=== PATIENT | female | born 1940 | race Caucasian/White ===

== ENCOUNTER 2017-06-13 22:10 | Inpatient (IN) | payer OTHER ==
[2017-06-13 22:17] VITALS: BMI 26.4
--- NOTE | 2017-06-13 22:19 | PDOC ---
Attending Attestation - Resident Resident Name: Carlos Fagan - ED Attending Attestation I have performed the following: I have examined & evaluated the patient, The case was reviewed & discussed with the resident, I agree w/resident's findings & plan, Exceptions are as noted - HPI HPI: 06/13/17 22:23 77y F hx of COPD, dm, htn, hl, gerd, presents with worsening cough/chest tightness for the past week. +increased sputum production that is whitish in color, without associated fever/chills, n/v, leg swelling, palpitations, Allergies: Penicillins, eggs Social History: Former smoker. Denies alcohol or drug use. PCP: Dr. Radha Raymundo Filterer: Dr. Stephenson - Physicial Exam PE: 06/13/17 22:33 GENERAL: The patient is awake, alert, and fully oriented, Nontoxic - + respiratory distress HEAD: Normocephalic, atraumatic. EYES: extraocular movements intact, sclera anicteric, conjunctiva clear. ENT: Normal voice, Moist mucous membranes. NECK: Normal range of motion, supple LUNGS: +poor air movement, +diffuse wheezing b/l, speaking in short segments HEART: tachcyardic ABDOMEN: Soft, nontender, normoactive bowel sounds. No guarding, no rebound. No CVA tenderness EXTREMITIES: Normal range of motion, no edema. NEUROLOGICAL: No facial assymetry, Normal speech, moving all 4 extremities spontaneously and symemtrically PSYCH: Normal mood, normal affect. SKIN: Warm, Dry, normal turgor, - Medical Decision Making 06/13/17 22:37 On presentation the patient was dyspneic, speaking in short segments, hypoxic, slightly tachycardic. I was immediately bedside evaluating the patient. suspect codp exacerbation will r/o pna, influenza will ck labs, ekg pt given solumedrol, nebs, mag anticipate admission for further management 06/13/17 23:27 pts labs reviewed cxr neg for infiltrates, +mild hyperexpansion pt given levaquin for copd exacerbation pt clinically significantly improved will observe for COPD exacerbation CRITICAL CARE DOCUMENTATION: I spent ~40 minutes of Critical Care time, excluding separately billable procedures, involving high complexity decision making to assess, manipulate and support vital system function(s) to treat single or multiple vital organ system failure and/or to prevent further life threatening deterioration of the patient' s condition. Heart Score/ECG Review - ECG Impressions Comment:: 06/13/17 23:41 Twelve-lead EKG was performed and reviewed by me. There is normal sinus rhythm with a normal rate. Rate of 96 The axis is normal. There is abnormal R wave progression No ST-T wave changes suggestive of acute ischemia QTc interval of 510
[2017-06-13] MEDS ORDERED: methylPREDNISolone NA SUCC 125 MG/2 ML VIAL IVPB ONE (22:23)
[2017-06-13] MEDS ORDERED: MAGNESIUM SULF 50% (8.12 MEQ/2 ML-1 GM VIAL) IVPB ONE (22:23)
[2017-06-13] MEDS ORDERED: ALBUTEROL SO4 2.5/IPRATROPIUM 0.5 INH SOL 3 ML VIAL.NEB. NEB ONE ×4 (22:24→23:05)
[2017-06-13] MEDS ORDERED: LEVOFLOXACIN 750 MG IVPB 150 ML IVPB ONE ×2 (22:30→22:40)
--- NOTE | 2017-06-13 22:38 | PDOC ---
History of Present Illness - General Chief Complaint: Respiratory Stated Complaint: SOB Time Seen by Provider: 06/13/17 22:18 - History of Present Illness Initial Comments: The patient is a 76-year-old female, with a significant past medical history of diabetes mellitus, hypertension, hypercholesterolemia, asthma, bronchitis, COPD, GERD, and CAD (5 stents) presenting via EMS after having shortness of breath. S When she presented to the ED on the stretcher she displayed supraclavicular retractions and generally increased work of breathing. She was immediately placed on nasal cannula and given a dose of duonebs. Her breathing improved in about 10 minutes. She admitted to SOB and cough productive of white sputum over the past few days that has acutely worsened today. She also admits to some chest tightness that improved after a dose of nebs earlier in the morning. She took a shower and was about to go to bed but immediately had these respiratory symptoms and called 911. She had a COPD exxacerbation one year prior. She denies fevers, chills, palpitations, or recent sick contacts. 06/13/17 22:38 Past History - Past Medical History Allergies/Adverse Reactions: Allergies Allergy/AdvReac Type Severity Reaction Status Date / Time Penicillins Allergy Intermediate Hives Verified 06/13/17 22:15 EGGS Allergy Uncoded 06/13/17 22:15 Home Medications: Ambulatory Orders Cholecalciferol (Vitamin D3) [Vitamin D3 -] 1,000 units PO DAILY 06/14/15 Cyanocobalamin [Vitamin B12 -] 100 mcg PO DAILY 06/14/15 Ipratropium/Albuterol Sulfate [Iprat-Albut 0.5-3(2.5) mg/3 ml] 1 neb IH QID PRN 06/14/15 [place]-3 Fatty Acids/Fish Oil [Fish Oil 1,000 mg Softgel] 1 each PO DAILY Rosuvastatin Calcium [Crestor] 40 mg PO DAILY 06/14/15 Aspirin Coated [Ecotrin -] 81 mg PO DAILY tablet.ec 06/15/15 Albuterol Sulfate Inhaler - [Ventolin HFA Inhaler -] 1 puff IH Q4H PRN #1 08/29 Salmeterol/Fluticasone [Advair 100Mcg/50Mcg -] 1 puff PO BID #1 inhaler Tiotropium [place] [Spiriva] 18 puff IH DAILY #1 inh 08/29/15 Budesonide/Formeterol Fumarate [SYMBICORT 160/4.5mcg -] 2 puff IH BID inhaler 08/30/15 Levofloxacin [Levaquin -] 500 mg PO DAILY #7 tablet MDD 1 09/19/16 Verapamil HCl ER [Calan Sr -] 120 mg PO DAILY #30 tablet.er 09/19/16 Asthma: Yes Cardiac Disorders: Yes COPD: Yes Diabetes: Yes HTN: Yes Hypercholesterolemia: Yes Thyroid Disease: No - Surgical History Cardiac Surgery: Yes (stents x 5) - Immunization History Immunization Up to Date: Yes - Suicide/Smoking/Psychosocial Hx Smoking History: Current every day smoker Have you smoked in the past 12 months: Yes Number of Cigarettes Smoked Daily: 20 Information on smoking cessation initiated: No 'Breaking Loose' booklet given: 08/27/15 Hx Alcohol Use: No Drug/Substance Use Hx: No Substance Use Type: None Hx Substance Use Treatment: No Review of Systems - Review of Systems Constitutional: No: Chills, Diaphoresis, Fever, Loss of Appetite HEENTM: No: Blurred Vision, Nose Congestion Respiratory: Yes: Cough, Shortness of Breath, SOB with Exertion, SOB at Rest, Wheezing, Productive cough Cardiac (ROS): Yes: Chest Tightness. No: Chest Pain ABD/GI: No: Diarrhea, Nausea, Vomiting : No: Burning, Dysuria Integumentary: No: Bruising, Change in Color, Lesions Neurological: No: Headache *Physical Exam - Vital Signs Last Vital Signs Temp Pulse Resp BP Pulse Ox 102 H 20 171/105 90 L 06/13/17 22:15 06/13/17 22:15 06/13/17 22:15 06/13/17 22:15 - Physical Exam General Appearance: Yes: Nourished, Appropriately Dressed, Apparent Distress, Moderate Distress HEENT: positive: EOMI, ANAMIKA. negative: Normal ENT Inspection, Pharynx Normal ( Mucous in posterior oropharynx) Neck: positive: Tender, Trachea midline, Normal Thyroid Respiratory/Chest: positive: Respiratory Distress, Accessory Muscle Use, Labored Respiration, Rapid RR, Decreased Breath Sounds, Paradoxal Breathing, Rhonchi, Wheezing, Other (Pursed lips on expiration with delayed expiratory phase.). negative: Chest Tender, Lungs Clear, Normal Breath Sounds Cardiovascular: positive: Regular Rhythm, Regular Rate Gastrointestinal/Abdominal: positive: Normal Bowel Sounds, Flat, Soft. negative : Tender Musculoskeletal: positive: Normal Inspection Extremity: positive: Normal Capillary Refill, Normal Inspection, Normal Range of Motion Integumentary: positive: Normal Color, Dry, Warm Neurologic: positive: Fully Oriented, Alert, Normal Mood/Affect ED Treatment Course - LABORATORY CBC & Chemistry Diagram: 06/13/17 22:30 06/13/17 22:30 - RADIOLOGY Radiology Studies Ordered: Category Date Time Status CHEST X-RAY PORTABLE* [RAD] Stat Radiology 06/13/17 22:26 Ordered - Medications Given in the ED: ED Medications Discontinued Medications Generic Name Dose Route Start Last Admin Trade Name Freq PRN Reason Stop Dose Admin Albuterol/Ipratropium 1 amp 06/13/17 22:24 06/13/17 22:00 Duoneb - NEB 06/13/17 22:25 1 amp ONCE ONE Administration Magnesium Sulfate 2 gm 06/13/17 22:23 06/13/17 20:00 Magnesium Sulfate IVPB 06/13/17 22:24 2 gm ONCE ONE Administration Methylprednisolone Sodium Succinate 125 mg 06/13/17 22:23 06/13/17 22:00 Solu-Medrol - IVPB 06/13/17 22:24 125 mg ONCE ONE Administration Medical Decision Making - Critical Care Time Total Critical Care Time (minutes): 15 - Medical Decision Making 77 year old female presenting in acute respiratory distress. this is most concerning for COPD exacerbation. Labs evidencing slight leukocytosis with hypoxia. CXR generally clear without effusions. Given 3 doses of duonebs, 125 MG solumedrol, and Levaquin 750 with good resolution of her respiratory distress. Will admit for medsurg obs under Dr. Dey after speaking to Dr. Cantu. 06/14/17 00:12 *DC/Admit/Observation/Transfer Diagnosis at time of Disposition: COPD exacerbation - Discharge Dispostion Condition at time of disposition: Improved Admit: Yes
[2017-06-13 22:56] LABS: BASOPHIL 1.1 % (0-2.0); EOSINOPHIL 15.5 % (0-4.5); MCH 30.9 pg (25.7-33.7); MCHC 33.3 g/dl (32.0-36.0); MEAN CELL VOLUME 92.7 fl (80-96); MEAN PLT VOLUME 7.7 fl (7.5-11.1); NEUTROPHILS 45.1 % (42.8-82.8); PLATELET COUNT 291 K/MM3 (134-434); RDW 15.1 % (11.6-15.6); WHITE BLOOD COUNT 11.5 K/mm3 (4.0-10.0)
[2017-06-13 22:59] LABS: VENOUS PH 7.33 (7.32-7.42)
[2017-06-13 23:02] LABS: VENOUS BLOOD GAS HCO3 29.3 meq/L (19-25)
[2017-06-13 23:13] LABS: ALBUMIN 3.7 g/dl (3.4-5.0); ANION GAP 10 (8-16); CALCIUM 9.1 mg/dL (8.5-10.1); CO2 28 mmol/L (21-32); CREATININE 0.6 mg/dL (0.55-1.02); GLUCOSE,RANDOM 100 mg/dL (74-106); SGPT/ALT 18 U/L (12-78)
[2017-06-13 23:14] LABS: ALK PHOS 74 U/L (45-117); BILIRUBIN,TOTAL 0.6 mg/dL (0.2-1.0); TOT PROT 7.1 g/dl (6.4-8.2)
[2017-06-13 23:22] LABS: MAGNESIUM 2.4 mg/dL (1.8-2.4); SGOT/AST 24 U/L (15-37)
[2017-06-14] MEDS ORDERED: ACETAMINOPHEN 325 MG TABLET (FP) PO PRN (00:02)
[2017-06-14] MEDS ORDERED: ALBUTEROL SO4 2.5/IPRATROPIUM 0.5 INH SOL 3 ML VIAL.NEB. NEB PRN (00:02)
[2017-06-14] MEDS: methylPREDNISolone NA SUCC 40 MG/1 ML VIAL IVPB SCH ×3 (02:09→18:11)
[2017-06-14] MEDS ORDERED: PT OWN MED DRAWER 7, Y5N ONE ×2 (09:14→15:21)
[2017-06-14] MEDS: ASPIRIN COATED 81 MG TABLET.EC PO SCH (09:23)
[2017-06-14] MEDS: VERAPAMIL HCL 240 MG E.R. TABLET (FP) PO SCH (09:23)
[2017-06-14] MEDS: HEPARIN NA (PORCINE) 5,000 UNITS/ML 1ML VIAL SQ SCH ×2 (09:24→21:10)
[2017-06-14] MEDS: BUDESONIDE/FORMETEROL FUMARATE 160/4.5 mcg INHALER IH SCH ×2 (11:14→21:09)
--- NOTE | 2017-06-14 11:52 | HP ---
Admitting History and Physical - Primary Care Physician PCP: Radha Raymundo - Admission Chief Complaint: SOB History of Present Illness: 77y F hx of COPD, dm, htn, hl, gerd, presents with worsening cough/chest tightness for the past week. +increased sputum production that is whitish in color, without associated fever/chills, n/v, leg swelling, palpitations, History Source: Patient Limitations to Obtaining History: No Limitations - Past Medical History Cardiovascular: Yes: HTN, Hyperlipdemia Pulmonary: Yes: COPD Gastrointestinal: Yes: GERD Musculoskeletal: Yes: Chronic low back pain, Osteoarthritis Endocrine: Yes: Diabetes Mellitus - Smoking History Smoking history: Current every day smoker Have you smoked in the past 12 months: Yes Aproximately how many cigarettes per day: 20 - Alcohol/Substance Use Hx Alcohol Use: No Home Medications - Allergies Allergies/Adverse Reactions: Allergies Allergy/AdvReac Type Severity Reaction Status Date / Time Penicillins Allergy Intermediate Hives Verified 06/13/17 22:15 EGGS Allergy Uncoded 06/13/17 22:15 - Home Medications Home Medications: Ambulatory Orders Cholecalciferol (Vitamin D3) [Vitamin D3 -] 1,000 units PO DAILY 06/14/15 Cyanocobalamin [Vitamin B12 -] 100 mcg PO DAILY 06/14/15 Ipratropium/Albuterol Sulfate [Iprat-Albut 0.5-3(2.5) mg/3 ml] 1 neb IH QID PRN 06/14/15 [place]-3 Fatty Acids/Fish Oil [Fish Oil 1,000 mg Softgel] 1 each PO DAILY Rosuvastatin Calcium [Crestor] 40 mg PO DAILY 06/14/15 Aspirin Coated [Ecotrin -] 81 mg PO DAILY tablet.ec 06/15/15 Albuterol Sulfate Inhaler - [Ventolin HFA Inhaler -] 1 puff IH Q4H PRN #1 08/29 Salmeterol/Fluticasone [Advair 100Mcg/50Mcg -] 1 puff PO BID #1 inhaler Tiotropium [place] [Spiriva] 18 puff IH DAILY #1 inh 08/29/15 Budesonide/Formeterol Fumarate [SYMBICORT 160/4.5mcg -] 2 puff IH BID inhaler 12/24/15 Verapamil HCl ER [Calan Sr -] 120 mg PO DAILY #30 tablet.er 09/19/16 Review of Systems - Review of Systems Constitutional: reports: No Symptoms Eyes: reports: No Symptoms HENT: reports: No Symptoms Neck: reports: No Symptoms Cardiovascular: reports: No Symptoms Respiratory: reports: SOB, SOB on Exertion Gastrointestinal: reports: No Symptoms Genitourinary: reports: No Symptoms Musculoskeletal: reports: No Symptoms Integumentary: reports: No Symptoms Neurological: reports: No Symptoms Endocrine: reports: No Symptoms Hematology/Lymphatic: reports: No Symptoms Psychiatric: reports: No Symptoms Physical Examination Vital Signs: Vital Signs Temperature 97.8 F 06/14/17 08:00 Pulse Rate 94 H 06/14/17 08:00 Respiratory Rate 22 06/14/17 08:00 Blood Pressure 128/81 06/14/17 08:00 O2 Sat by Pulse Oximetry (%) 97 06/14/17 01:06 Constitutional: Yes: Mild Distress Eyes: Yes: WNL HENT: Yes: WNL Neck: Yes: WNL Cardiovascular: Yes: WNL Respiratory: Yes: Cough, On Nasal O2, Poor Air Entry, SOB Gastrointestinal: Yes: WNL Renal/: Yes: WNL Musculoskeletal: Yes: WNL Extremities: Yes: WNL Edema: No Peripheral Pulses WNL: Yes Integumentary: Yes: WNL Wound/Incision: Yes: Clean/Dry Neurological: Yes: WNL ...Motor Strength: WNL Psychiatric: Yes: WNL Imaging - Results Chest X-ray: Report Reviewed Problem List - Problems (1) COPD exacerbation Code(s): J44.1 - CHRONIC OBSTRUCTIVE PULMONARY DISEASE W (ACUTE) EXACERBATION (2) ASHD (arteriosclerotic heart disease) Code(s): I25.10 - ATHSCL HEART DISEASE OF [place] CORONARY ARTERY W/O ANG PCTRS (3) Asthma Code(s): J45.909 - UNSPECIFIED ASTHMA, UNCOMPLICATED (4) COPD (chronic obstructive pulmonary disease) Code(s): J44.9 - CHRONIC OBSTRUCTIVE PULMONARY DISEASE, UNSPECIFIED (5) DM2 (diabetes mellitus, type 2) Code(s): E11.9 - TYPE 2 DIABETES MELLITUS WITHOUT COMPLICATIONS (6) Smoker Code(s): F17.200 - NICOTINE DEPENDENCE, UNSPECIFIED, UNCOMPLICATED (7) Paroxysmal supraventricular tachycardia Code(s): I47.1 - SUPRAVENTRICULAR TACHYCARDIA Assessment/Plan IV STEROIDS NEBS PULM EVAL TACHYCARDIA ON VERAPAMIL OOB TO CHAIR PULMONARY EVAL
--- NOTE | 2017-06-14 13:17 | PN ---
Progress Note (short form) - Note Progress Note: PULMONARY CONSULTATION DICTATED 06/14/17 IMP ACUTE HYPERCAPNEIC RESPIRATORY FAILURE COPD EXACERBATION ASHD S/P STENT HTN HLD TOBACCO ABUSE PLAN IV STEROIDS INHALED BRONCHODILATORS O2 PFTS OUTPATIENT SMOKING CESSATION COUNSELED LOW DOSE CHEST CT DR [place] Problem List - Problems (1) COPD exacerbation Code(s): J44.1 - CHRONIC OBSTRUCTIVE PULMONARY DISEASE W (ACUTE) EXACERBATION (2) ASHD (arteriosclerotic heart disease) Code(s): I25.10 - ATHSCL HEART DISEASE OF [place] CORONARY ARTERY W/O ANG PCTRS (3) DM2 (diabetes mellitus, type 2) Code(s): E11.9 - TYPE 2 DIABETES MELLITUS WITHOUT COMPLICATIONS (4) Smoker Code(s): F17.200 - NICOTINE DEPENDENCE, UNSPECIFIED, UNCOMPLICATED (5) Tobacco abuse Code(s): Z72.0 - TOBACCO USE (6) Acute respiratory failure with hypercapnia Code(s): J96.02 - ACUTE RESPIRATORY FAILURE WITH HYPERCAPNIA (7) Encounter for smoking cessation counseling Code(s): Z71.6 - TOBACCO ABUSE COUNSELING Z72.0 - TOBACCO USE
--- NOTE | 2017-06-14 13:27 | CONS ---
DATE OF CONSULTATION: 06/14/2017 REFERRING PHYSICIAN: Divina Cantu MD The patient is a 77-year-old white female with a past medical history of COPD, maintained on albuterol inhaler, diabetes, hypertension, hyperlipidemia, GERD, longstanding history of tobacco use, approximately 1-1/2 packs a day since age 12, currently still smoking, admitted to [facility] with complaint of 1 week history of increasing shortness of breath, cough, and sputum production. Patient denied any fevers, chills, nausea, vomiting, or diaphoresis. Denied any recent URI symptoms. Patient states that she had weakness, now with increased cough and wheezing. States cough is productive of clear, white sputum. She presented to the emergency room with the above. In the ER, she was noted to be in respiratory distress. She was started on inhaled bronchodilators,steroids, and transferred up to the medical floor for further management. Patient denies any history of occupational exposure to chemicals or fumes. There is no history of recent travel. She has never been intubated. PAST MEDICAL HISTORY: Again, includes COPD, diabetes, hypertension, hyperlipidemia, GERD. REVIEW OF SYSTEMS: No orthopnea. Positive cough, positive congestion, positive dyspnea. No abdominal pain, no lower extremity edema. CURRENT MEDICATIONS: Symbicort, Solu-Medrol, Tylenol, heparin, DuoNeb, Calan, Crestor, and Ecotrin. PHYSICAL EXAMINATION: General: The patient is a well-developed, well-nourished female, awake, alert, mildly congested. Vital Signs: She is currently afebrile, her blood pressure is 128/81, respiratory rate is 22, O2 saturation is 97% on 2 L. HEENT: Normocephalic, atraumatic. Neck: Supple. Heart: Regular, S1, S2. Chest: Bilateral expiratory wheezes and rhonchi. Abdomen: Soft, bowel sounds positive. Extremities: No cyanosis, edema. LABORATORIES: WBC is 11.5, hemoglobin 13.9, hematocrit 41.6 with a platelet count of 291,000. Venous blood gas pH 7.33, pCO2 of 56, pO2 of 33, saturation of 29. BUN 12, creatinine 0.1. IMPRESSION: 1. Acute hypercapnic/hypoxemic respiratory failure secondary to decompensated chronic obstructive pulmonary disease. 2. Advanced chronic obstructive pulmonary disease with acute exacerbation. 3. Hypertension. 4. Atherosclerotic heart disease, status post stents. 5. Smoker/tobacco abuse. PLAN: IV steroids, inhaled bronchodilators, nasal O2, check O2 saturation at rest as well as with exercise prior to discharge to determine whether patient is a candidate for home O2. We will also recommend CT scan of the chest, low-dose. PFTs outpatient, DVT prophylaxis. Prashanth [id number] MTDD
[2017-06-14] MEDS: ALBUTEROL SO4 0.083% IH SOL 2.5 MG/3 ML VIAL.NEB. NEB PRN ×3 (13:35→22:00)
[2017-06-14] MEDS: TIOTROPIUM BROMIDE 18 MCG/INH (DEVICE W/ 5 CAPSULES) IH SCH (15:08)
--- NOTE | 2017-06-14 16:07 | EKG ---
Test Reason : Blood Pressure : / mmHG Vent. Rate : 096 BPM Atrial Rate : 096 BPM P-R Int : 208 ms QRS Dur : 088 ms QT Int : 404 ms P-R-T Axes : 068 051 072 degrees QTc Int : 510 ms NORMAL SINUS RHYTHM BASELINE ARTIFACT POSSIBLE ANTEROSEPTAL WALL SD OF INDETERMINATE AGE PROLONGED QT ABNORMAL ECG WHEN COMPARED WITH ECG OF 15-SEP-2016 10:48, NONSPECIFIC T WAVE ABNORMALITY NO LONGER EVIDENT IN INFERIOR LEADS QT HAS LENGTHENED REPEAT EKG IF CLINICALLY INDICATED Confirmed by LILLIANA BRAR MD ([id number]) on 06/14/2017 4:07:17 PM Referred By: Confirmed By:LILLIANA BRAR MD
[2017-06-14] MEDS: ROSUVASTATIN CA 5 MG TABLET (FP) PO SCH (21:09)
[2017-06-15] MEDS: methylPREDNISolone NA SUCC 40 MG/1 ML VIAL IVPB SCH ×3 (02:46→17:25)
--- NOTE | 2017-06-15 08:40 | PN ---
Progress Note, Physician - Current Medication List Current Medications: Active Medications Acetaminophen (Tylenol -) 650 mg PO Q6H PRN PRN Reason: FEVER OR PAIN Albuterol Sulfate (Ventolin 0.083% Nebulizer Soln -) 1 amp NEB Q4H PRN PRN Reason: SHORT OF BREATH/WHEEZING Last Admin: 06/14/17 22:00 Dose: 1 amp Aspirin (Ecotrin -) 81 mg PO DAILY [facility] Last Admin: 06/14/17 09:23 Dose: 81 mg Budesonide/Formoterol Fumarate (Symbicort 160/4.5mcg -) 2 puff IH BID [facility] Last Admin: 06/14/17 21:09 Dose: 2 puff Heparin Sodium (Porcine) (Heparin -) 5,000 unit SQ BID [facility] Last Admin: 06/14/17 21:10 Dose: 5,000 unit Methylprednisolone Sodium Succinate (Solu-Medrol -) 40 mg IVPB Q8H-IV [facility] Last Admin: 06/15/17 02:46 Dose: 40 mg Rosuvastatin Calcium (Crestor -) 5 mg PO HS [facility] Last Admin: 06/14/17 21:09 Dose: 5 mg Tiotropium [place] (Spiriva -) 1 puff IH DAILY [facility] Last Admin: 06/14/17 15:08 Dose: 1 puff Verapamil HCl (Calan Sr -) 240 mg PO DAILY [facility] Last Admin: 06/14/17 09:23 Dose: 240 mg - Objective Vital Signs: Vital Signs Temperature 98.0 F 06/15/17 08:14 Pulse Rate 90 06/15/17 08:14 Respiratory Rate 20 06/15/17 08:14 Blood Pressure 113/78 06/15/17 08:14 O2 Sat by Pulse Oximetry (%) 96 06/14/17 21:00 Cardiovascular: Yes: Regular Rate and Rhythm Respiratory: Yes: Diminished, On Nasal O2, Rhonchi, Wheezes Gastrointestinal: Yes: Normal Bowel Sounds, Soft Problem List - Problems (1) COPD exacerbation Assessment/Plan: IV STEROIDS BRONCHODILATORS Code(s): J44.1 - CHRONIC OBSTRUCTIVE PULMONARY DISEASE W (ACUTE) EXACERBATION (2) Chronic bronchitis Assessment/Plan: IV ABX CT OF CHEST Code(s): J42 - UNSPECIFIED CHRONIC BRONCHITIS (3) DM2 (diabetes mellitus, type 2) Assessment/Plan: MONITOR BGM Code(s): E11.9 - TYPE 2 DIABETES MELLITUS WITHOUT COMPLICATIONS
[2017-06-15 08:55] LABS: MCH 29.8 pg (25.7-33.7); MCHC 32.1 g/dl (32.0-36.0); MEAN CELL VOLUME 92.8 fl (80-96); MEAN PLT VOLUME 7.6 fl (7.5-11.1); PLATELET COUNT 286 K/MM3 (134-434); RDW 15.2 % (11.6-15.6)
[2017-06-15] MEDS: ALBUTEROL SO4 0.083% IH SOL 2.5 MG/3 ML VIAL.NEB. NEB PRN (09:08)
[2017-06-15 09:12] LABS: ALBUMIN 3.5 g/dl (3.4-5.0); ALK PHOS 72 U/L (45-117); ANION GAP 10 (8-16); BILIRUBIN,TOTAL 0.3 mg/dL (0.2-1.0); CALCIUM 9.5 mg/dL (8.5-10.1); CO2 26 mmol/L (21-32); CREATININE 0.9 mg/dL (0.55-1.02); GLUCOSE,RANDOM 150 mg/dL (74-106); SGOT/AST 6 U/L (15-37); SGPT/ALT 16 U/L (12-78); TOT PROT 6.8 g/dl (6.4-8.2)
[2017-06-15] MEDS ORDERED: PT OWN MED DRAWER 7, Y5N ONE ×2 (10:03→21:41)
[2017-06-15] MEDS: HEPARIN NA (PORCINE) 5,000 UNITS/ML 1ML VIAL SQ SCH ×2 (10:07→21:44)
[2017-06-15] MEDS: VERAPAMIL HCL 240 MG E.R. TABLET (FP) PO SCH (10:13)
[2017-06-15] MEDS: ASPIRIN COATED 81 MG TABLET.EC PO SCH (10:13)
[2017-06-15] MEDS: BUDESONIDE/FORMETEROL FUMARATE 160/4.5 mcg INHALER IH SCH ×2 (10:14→21:45)
[2017-06-15] MEDS: TIOTROPIUM BROMIDE 18 MCG/INH (DEVICE W/ 5 CAPSULES) IH SCH (10:14)
[2017-06-15] MEDS: LEVOFLOXACIN 500 MG IVPB 100 ML IVPB SCH (11:01)
--- NOTE | 2017-06-15 13:19 | PN ---
Progress Note (short form) - Note Progress Note: Breathing feels a little better today. (+) [place] when ambulating to the bathroom , but better with O2 use. Some musculoskeletal discomfort on the left with coughing. Intake & Output 06/12/17 06/13/17 06/14/17 06/15/17 23:59 23:59 23:59 23:59 Intake Total 665 200 Balance 665 200 Weight 135 lb 142 lb 6.4 oz Last Vital Signs Temp Pulse Resp BP Pulse Ox 98.0 F 87 20 113/78 91 L 06/15/17 08:14 06/15/17 09:08 06/15/17 08:14 06/15/17 08:14 06/15/17 09:08 Active Medications Acetaminophen (Tylenol -) 650 mg PO Q6H PRN PRN Reason: FEVER OR PAIN Albuterol Sulfate (Ventolin 0.083% Nebulizer Soln -) 1 amp NEB Q4H PRN PRN Reason: SHORT OF BREATH/WHEEZING Last Admin: 06/15/17 09:08 Dose: 1 amp Aspirin (Ecotrin -) 81 mg PO DAILY [facility] Last Admin: 06/15/17 10:13 Dose: 81 mg Budesonide/Formoterol Fumarate (Symbicort 160/4.5mcg -) 2 puff IH BID [facility] Last Admin: 06/15/17 10:14 Dose: 2 puff Heparin Sodium (Porcine) (Heparin -) 5,000 unit SQ BID [facility] Last Admin: 06/15/17 10:07 Dose: 5,000 unit Levofloxacin (Levaquin 500 Mg Premixed Ivpb -) 100 mls @ 100 mls/hr IVPB DAILY [facility] Last Admin: 06/15/17 11:01 Dose: 100 mls/hr Methylprednisolone Sodium Succinate (Solu-Medrol -) 40 mg IVPB Q8H-IV [facility] Last Admin: 06/15/17 10:07 Dose: 40 mg Rosuvastatin Calcium (Crestor -) 5 mg PO HS [facility] Last Admin: 06/14/17 21:09 Dose: 5 mg Tiotropium [place] (Spiriva -) 1 puff IH DAILY [facility] Last Admin: 06/15/17 10:14 Dose: 1 puff Verapamil HCl (Calan Sr -) 240 mg PO DAILY [facility] Last Admin: 06/15/17 10:13 Dose: 240 mg Constitutional: Yes: Awake and alert, NAD Eyes: Yes: WNL HENT: Yes: WNL Neck: Yes: WNL Cardiovascular: Yes: WNL Respiratory: Yes: Cough, On Nasal O2, Bilateral scattered rhonchi, mildly tachypneic at rest Gastrointestinal: Yes: WNL Renal/: Yes: WNL Musculoskeletal: Yes: WNL Extremities: Yes: WNL Edema: No Peripheral Pulses WNL: Yes Integumentary: Yes: WNL Neurological: Yes: WNL ...Motor Strength: WNL Psychiatric: Yes: WNL Laboratory Results - last 24 hr 06/14/17 06/15/17 06/15/17 14:43 06:24 07:40 WBC 25.0 H D RBC 4.51 Hgb 13.5 Hct 41.9 MCV 92.8 MCH 29.8 MCHC 32.1 RDW 15.2 Plt Count 286 MPV 7.6 Sodium Potassium Chloride Carbon Dioxide Anion Gap BUN Creatinine Creat Clearance w eGFR POC Glucometer 215 153 Random Glucose Calcium Total Bilirubin AST ALT Alkaline Phosphatase Total Protein Albumin 06/15/17 07:40 WBC RBC Hgb Hct MCV MCH MCHC RDW Plt Count MPV Sodium 139 Potassium 4.5 Chloride 103 Carbon Dioxide 26 Anion Gap 10 BUN 27 H D Creatinine 0.9 D Creat Clearance w eGFR > 60 POC Glucometer Random Glucose 150 H D Calcium 9.5 Total Bilirubin 0.3 D AST 6 L D ALT 16 Alkaline Phosphatase 72 Total Protein 6.8 Albumin 3.5 Problem List - Problems (1) COPD exacerbation Code(s): J44.1 - CHRONIC OBSTRUCTIVE PULMONARY DISEASE W (ACUTE) EXACERBATION (2) ASHD (arteriosclerotic heart disease) Code(s): I25.10 - ATHSCL HEART DISEASE OF [place] CORONARY ARTERY W/O ANG PCTRS (3) DM2 (diabetes mellitus, type 2) Code(s): E11.9 - TYPE 2 DIABETES MELLITUS WITHOUT COMPLICATIONS (4) Smoker Code(s): F17.200 - NICOTINE DEPENDENCE, UNSPECIFIED, UNCOMPLICATED (5) Tobacco abuse Code(s): Z72.0 - TOBACCO USE (6) Acute respiratory failure with hypercapnia Code(s): J96.02 - ACUTE RESPIRATORY FAILURE WITH HYPERCAPNIA (7) Encounter for smoking cessation counseling Code(s): Z71.6 - TOBACCO ABUSE COUNSELING Z72.0 - TOBACCO USE IMP ACUTE HYPERCAPNEIC RESPIRATORY FAILURE COPD EXACERBATION ASHD S/P STENT HTN HLD TOBACCO ABUSE PLAN IV STEROIDS INHALED BRONCHODILATORS O2 PFTS OUTPATIENT SMOKING CESSATION COUNSELED NOTED CHEST CT ORDERED Dr Robertson
[2017-06-15] MEDS: ROSUVASTATIN CA 5 MG TABLET (FP) PO SCH (21:45)
[2017-06-16] MEDS: methylPREDNISolone NA SUCC 40 MG/1 ML VIAL IVPB SCH ×3 (02:20→15:13)
--- NOTE | 2017-06-16 08:49 | PN ---
Progress Note, Physician History of Present Illness: LESS SOB NO CP C/O DIZZINESS THIS AM - Current Medication List Current Medications: Active Medications Acetaminophen (Tylenol -) 650 mg PO Q6H PRN PRN Reason: FEVER OR PAIN Albuterol Sulfate (Ventolin 0.083% Nebulizer Soln -) 1 amp NEB Q4H PRN PRN Reason: SHORT OF BREATH/WHEEZING Last Admin: 06/15/17 09:08 Dose: 1 amp Aspirin (Ecotrin -) 81 mg PO DAILY [facility] Last Admin: 06/15/17 10:13 Dose: 81 mg Budesonide/Formoterol Fumarate (Symbicort 160/4.5mcg -) 2 puff IH BID [facility] Last Admin: 06/15/17 21:45 Dose: 2 puff Heparin Sodium (Porcine) (Heparin -) 5,000 unit SQ BID [facility] Last Admin: 06/15/17 21:44 Dose: 5,000 unit Levofloxacin (Levaquin 500 Mg Premixed Ivpb -) 100 mls @ 100 mls/hr IVPB DAILY [facility] Last Admin: 06/15/17 11:01 Dose: 100 mls/hr Methylprednisolone Sodium Succinate (Solu-Medrol -) 40 mg IVPB Q8H-IV [facility] Last Admin: 06/16/17 02:20 Dose: 40 mg Rosuvastatin Calcium (Crestor -) 5 mg PO HS [facility] Last Admin: 06/15/17 21:45 Dose: 5 mg Tiotropium [place] (Spiriva -) 1 puff IH DAILY [facility] Last Admin: 06/15/17 10:14 Dose: 1 puff Verapamil HCl (Calan Sr -) 240 mg PO DAILY [facility] Last Admin: 06/15/17 10:13 Dose: 240 mg - Objective Vital Signs: Vital Signs Temperature 98.4 F 06/16/17 02:00 Pulse Rate 86 06/16/17 02:00 Respiratory Rate 20 06/16/17 02:00 Blood Pressure 126/73 06/16/17 02:00 O2 Sat by Pulse Oximetry (%) 91 L 06/15/17 22:00 Cardiovascular: Yes: S1, S2 Respiratory: Yes: On Nasal O2, Rhonchi Gastrointestinal: Yes: Normal Bowel Sounds, Soft Edema: No Neurological: Yes: Alert, Oriented, Weakness. No: Facial Droop Labs: CBC, BMP 06/15/17 07:40 06/15/17 07:40 Problem List - Problems (1) COPD exacerbation Assessment/Plan: IV STEROIDS BRONCHODILATORS Code(s): J44.1 - CHRONIC OBSTRUCTIVE PULMONARY DISEASE W (ACUTE) EXACERBATION (2) Chronic bronchitis Assessment/Plan: IV ABX CT OF CHEST Code(s): J42 - UNSPECIFIED CHRONIC BRONCHITIS (3) DM2 (diabetes mellitus, type 2) Assessment/Plan: MONITOR BGM Code(s): E11.9 - TYPE 2 DIABETES MELLITUS WITHOUT COMPLICATIONS (4) Dizziness Assessment/Plan: LABS EKG ABG Code(s): R42 - DIZZINESS AND GIDDINESS
[2017-06-16] MEDS ORDERED: PT OWN MED DRAWER 7, Y5N ONE (09:46)
[2017-06-16] MEDS: HEPARIN NA (PORCINE) 5,000 UNITS/ML 1ML VIAL SQ SCH ×2 (09:48→21:09)
[2017-06-16] MEDS: LEVOFLOXACIN 500 MG IVPB 100 ML IVPB SCH (09:48)
[2017-06-16] MEDS: ASPIRIN COATED 81 MG TABLET.EC PO SCH (09:48)
[2017-06-16] MEDS: BUDESONIDE/FORMETEROL FUMARATE 160/4.5 mcg INHALER IH SCH ×2 (09:48→21:10)
[2017-06-16] MEDS: VERAPAMIL HCL 240 MG E.R. TABLET (FP) PO SCH (09:48)
[2017-06-16] MEDS: TIOTROPIUM BROMIDE 18 MCG/INH (DEVICE W/ 5 CAPSULES) IH SCH (09:48)
[2017-06-16 09:54] LABS: MCHC 32.4 g/dl (32.0-36.0); MEAN CELL VOLUME 92.8 fl (80-96); MEAN PLT VOLUME 7.7 fl (7.5-11.1); PLATELET COUNT 268 K/MM3 (134-434); RDW 15.4 % (11.6-15.6)
[2017-06-16 10:00] LABS: ARTERIAL BLD GAS O2 SATURATION 94.4 % (90-98.9); ARTERIAL BLOOD GAS BASE EXCESS 2.4 meq/l (-2-2); ARTERIAL BLOOD GAS PO2 65.6 mmHg (70-100); ARTERIAL BLOOD GAS pH 7.45 (7.35-7.45)
[2017-06-16 10:01] LABS: ALLENS TEST POSITIVE; ART PUNCT SITE RIGHT RADIAL; PT. ON O2? NO
[2017-06-16 10:05] LABS: ALBUMIN 3.3 g/dl (3.4-5.0); ANION GAP 9 (8-16); BILIRUBIN,TOTAL 0.3 mg/dL (0.2-1.0); CALCIUM 9.3 mg/dL (8.5-10.1); CO2 28 mmol/L (21-32); GLUCOSE,RANDOM 235 mg/dL (74-106); SGOT/AST 8 U/L (15-37); SGPT/ALT 19 U/L (12-78); TOT PROT 6.6 g/dl (6.4-8.2)
[2017-06-16 10:08] LABS: ALK PHOS 66 U/L (45-117); CPK 64 IU/L (26-192); TROPONIN I < 0.02 ng/ml (0.00-0.05)
[2017-06-16 10:56] LABS: PLATELET ESTIMATE ADEQUATE (NORMAL); TOTAL CELLS COUNTED 100
--- NOTE | 2017-06-16 14:44 | PN ---
Progress Note (short form) - Note Progress Note: OOB to chair on RA. Breathing ok. No CP or SOB. CT: impacted inssipated mucous / emphysema / no acute infiltrate Intake & Output 06/13/17 06/14/17 06/15/17 06/16/17 23:59 23:59 23:59 23:59 Intake Total 665 600 500 Balance 665 600 500 Weight 135 lb 142 lb 6.4 oz Last Vital Signs Temp Pulse Resp BP Pulse Ox 98.5 F 83 20 97/66 91 L 06/16/17 14:00 06/16/17 14:00 06/16/17 14:00 06/16/17 14:00 06/15/17 22:00 Active Medications Acetaminophen (Tylenol -) 650 mg PO Q6H PRN PRN Reason: FEVER OR PAIN Albuterol Sulfate (Ventolin 0.083% Nebulizer Soln -) 1 amp NEB Q4H PRN PRN Reason: SHORT OF BREATH/WHEEZING Last Admin: 06/15/17 09:08 Dose: 1 amp Aspirin (Ecotrin -) 81 mg PO DAILY [facility] Last Admin: 06/16/17 09:48 Dose: 81 mg Budesonide/Formoterol Fumarate (Symbicort 160/4.5mcg -) 2 puff IH BID [facility] Last Admin: 06/16/17 09:48 Dose: 2 puff Heparin Sodium (Porcine) (Heparin -) 5,000 unit SQ BID [facility] Last Admin: 06/16/17 09:48 Dose: 5,000 unit Levofloxacin (Levaquin 500 Mg Premixed Ivpb -) 100 mls @ 100 mls/hr IVPB DAILY [facility] Last Admin: 06/16/17 09:48 Dose: 100 mls/hr Methylprednisolone Sodium Succinate (Solu-Medrol -) 40 mg IVPB Q8H-IV [facility] Last Admin: 06/16/17 09:48 Dose: 40 mg Rosuvastatin Calcium (Crestor -) 5 mg PO HS [facility] Last Admin: 06/15/17 21:45 Dose: 5 mg Tiotropium [place] (Spiriva -) 1 puff IH DAILY [facility] Last Admin: 06/16/17 09:48 Dose: 1 puff Verapamil HCl (Calan Sr -) 240 mg PO DAILY [facility] Last Admin: 06/16/17 09:48 Dose: 240 mg Constitutional: Yes: Awake and alert, NAD Eyes: Yes: WNL HENT: Yes: WNL Neck: Yes: WNL Cardiovascular: Yes: WNL Respiratory: Yes: Cough, On Nasal O2, Bilateral scattered rhonchi, mildly tachypneic at rest Gastrointestinal: Yes: WNL Renal/: Yes: WNL Musculoskeletal: Yes: WNL Extremities: Yes: WNL Edema: No Peripheral Pulses WNL: Yes Integumentary: Yes: WNL Neurological: Yes: WNL ...Motor Strength: WNL Psychiatric: Yes: WNL Laboratory Results - last 24 hr 06/15/17 06/16/17 06/16/17 16:09 05:53 09:15 WBC 21.0 H RBC 4.51 Hgb 13.6 Hct 41.9 MCV 92.8 MCH 30.0 MCHC 32.4 RDW 15.4 Plt Count 268 MPV 7.7 Total Counted 100 Neutrophils % No Result Required. Neutrophils % (Manual) 91 H* Band Neuts % (Manual) 1 Lymphocytes % No Result Required. Lymphocytes % (Manual) 5 L Monocytes % (Manual) 3 L Platelet Estimate Adequate Platelet Comment No clumping noted Puncture Site ABG pH ABG pCO2 at Pt Temp ABG pO2 at Pt Temp ABG HCO3 ABG O2 Sat (Measured) ABG O2 Content ABG Base Excess Jabari Test Oxygen Flow Rate PEEP Sodium Potassium Chloride Carbon Dioxide Anion Gap BUN Creatinine Creat Clearance w eGFR POC Glucometer 145 141 Random Glucose Calcium Total Bilirubin AST ALT Alkaline Phosphatase Creatine Kinase Troponin I Total Protein Albumin 06/16/17 06/16/17 09:15 10:00 WBC RBC Hgb Hct MCV MCH MCHC RDW Plt Count MPV Total Counted Neutrophils % Neutrophils % (Manual) Band Neuts % (Manual) Lymphocytes % Lymphocytes % (Manual) Monocytes % (Manual) Platelet Estimate Platelet Comment Puncture Site Right radial ABG pH 7.45 ABG pCO2 at Pt Temp 38.4 ABG pO2 at Pt Temp 65.6 L ABG HCO3 26.0 ABG O2 Sat (Measured) 94.4 ABG O2 Content 16.9 ABG Base Excess 2.4 H Jabari Test Positive Oxygen Flow Rate No PEEP 0.0 Sodium 139 Potassium 4.5 Chloride 102 Carbon Dioxide 28 Anion Gap 9 BUN 27 H Creatinine 1.0 Creat Clearance w eGFR 53.62 POC Glucometer Random Glucose 235 H D Calcium 9.3 Total Bilirubin 0.3 AST 8 L D ALT 19 Alkaline Phosphatase 66 Creatine Kinase 64 Troponin I < 0.02 Total Protein 6.6 Albumin 3.3 L Problem List - Problems (1) COPD exacerbation Code(s): J44.1 - CHRONIC OBSTRUCTIVE PULMONARY DISEASE W (ACUTE) EXACERBATION (2) ASHD (arteriosclerotic heart disease) Code(s): I25.10 - ATHSCL HEART DISEASE OF [place] CORONARY ARTERY W/O ANG PCTRS (3) DM2 (diabetes mellitus, type 2) Code(s): E11.9 - TYPE 2 DIABETES MELLITUS WITHOUT COMPLICATIONS (4) Smoker Code(s): F17.200 - NICOTINE DEPENDENCE, UNSPECIFIED, UNCOMPLICATED (5) Tobacco abuse Code(s): Z72.0 - TOBACCO USE (6) Acute respiratory failure with hypercapnia Code(s): J96.02 - ACUTE RESPIRATORY FAILURE WITH HYPERCAPNIA (7) Encounter for smoking cessation counseling Code(s): Z71.6 - TOBACCO ABUSE COUNSELING Z72.0 - TOBACCO USE IMP ACUTE HYPERCAPNEIC RESPIRATORY FAILURE COPD EXACERBATION ASHD S/P STENT HTN HLD TOBACCO ABUSE PLAN TAPER IV STEROIDS INHALED BRONCHODILATORS O2 PFTS OUTPATIENT SMOKING CESSATION COUNSELED NOTED CHEST CT ORDERED Dr Robertson
[2017-06-16] MEDS: ROSUVASTATIN CA 5 MG TABLET (FP) PO SCH (21:09)
--- NOTE | 2017-06-16 22:00 | EKG ---
Test Reason : Blood Pressure : / mmHG Vent. Rate : 067 BPM Atrial Rate : 067 BPM P-R Int : 186 ms QRS Dur : 092 ms QT Int : 452 ms P-R-T Axes : 061 033 067 degrees QTc Int : 477 ms NORMAL SINUS RHYTHM WITH SINUS ARRHYTHMIA POSSIBLE LEFT ATRIAL ENLARGEMENT SEPTAL INFARCT (CITED ON OR BEFORE 16-JUN-2017) T WAVE ABNORMALITY, CONSIDER ANTERIOR ISCHEMIA ABNORMAL ECG WHEN COMPARED WITH ECG OF 13-JUN-2017 22:34, T WAVE INVERSION NOW EVIDENT IN ANTERIOR LEADS REPEAT EKG IF CLINICALLY INDICATED Confirmed by LILLIANA BRAR MD ([id number]) on 06/16/2017 10:00:35 PM Referred By: WILLARD MARQUEZ DR Confirmed By:LILLIANA BRAR MD
[2017-06-17] MEDS ORDERED: PT OWN MED DRAWER 7, Y5N ONE (09:15)
[2017-06-17] MEDS: HEPARIN NA (PORCINE) 5,000 UNITS/ML 1ML VIAL SQ SCH ×2 (09:20→21:27)
[2017-06-17] MEDS: VERAPAMIL HCL 240 MG E.R. TABLET (FP) PO SCH (09:20)
[2017-06-17] MEDS: ASPIRIN COATED 81 MG TABLET.EC PO SCH (09:20)
[2017-06-17] MEDS: BUDESONIDE/FORMETEROL FUMARATE 160/4.5 mcg INHALER IH SCH ×2 (09:21→21:27)
[2017-06-17] MEDS: LEVOFLOXACIN 500 MG IVPB 100 ML IVPB SCH (09:21)
[2017-06-17] MEDS: methylPREDNISolone NA SUCC 40 MG/1 ML VIAL IVPB SCH ×2 (09:21→21:27)
[2017-06-17] MEDS: TIOTROPIUM BROMIDE 18 MCG/INH (DEVICE W/ 5 CAPSULES) IH SCH (09:21)
--- NOTE | 2017-06-17 12:44 | PN ---
Progress Note (short form) - Note Progress Note: PULMONARY CONGESTED COUGH DESATS OFF O2 VSS/AFEBRILE ANICERIC SCATTERED RHONCHI S1S2 RSR BS+ NO EDEMA LABS/MEDS/IMAGING/NOTES REVIEWED (1) COPD exacerbation Code(s): J44.1 - CHRONIC OBSTRUCTIVE PULMONARY DISEASE W (ACUTE) EXACERBATION (2) ASHD (arteriosclerotic heart disease) Code(s): I25.10 - ATHSCL HEART DISEASE OF [place] CORONARY ARTERY W/O ANG PCTRS (3) DM2 (diabetes mellitus, type 2) Code(s): E11.9 - TYPE 2 DIABETES MELLITUS WITHOUT COMPLICATIONS (4) Smoker Code(s): F17.200 - NICOTINE DEPENDENCE, UNSPECIFIED, UNCOMPLICATED (5) Tobacco abuse Code(s): Z72.0 - TOBACCO USE (6) Acute respiratory failure with hypercapnia Code(s): J96.02 - ACUTE RESPIRATORY FAILURE WITH HYPERCAPNIA (7) Encounter for smoking cessation counseling Code(s): Z71.6 - TOBACCO ABUSE COUNSELING Z72.0 - TOBACCO USE IMP ACUTE HYPERCAPNEIC RESPIRATORY FAILURE COPD EXACERBATION ASHD S/P STENT HTN HLD TOBACCO ABUSE PLAN IV STEROIDS SAME DOSE INHALED BRONCHODILATORS O2 PFTS OUTPATIENT SMOKING CESSATION COUNSELED LEIA LOU MD
--- NOTE | 2017-06-17 18:19 | PN ---
Progress Note, Physician Chief Complaint: SOB - Current Medication List Current Medications: Active Medications Acetaminophen (Tylenol -) 650 mg PO Q6H PRN PRN Reason: FEVER OR PAIN Albuterol Sulfate (Ventolin 0.083% Nebulizer Soln -) 1 amp NEB Q4H PRN PRN Reason: SHORT OF BREATH/WHEEZING Last Admin: 06/15/17 09:08 Dose: 1 amp Aspirin (Ecotrin -) 81 mg PO DAILY [facility] Last Admin: 06/17/17 09:20 Dose: 81 mg Budesonide/Formoterol Fumarate (Symbicort 160/4.5mcg -) 2 puff IH BID [facility] Last Admin: 06/17/17 09:21 Dose: 2 puff Heparin Sodium (Porcine) (Heparin -) 5,000 unit SQ BID [facility] Last Admin: 06/17/17 09:20 Dose: 5,000 unit Levofloxacin (Levaquin 500 Mg Premixed Ivpb -) 100 mls @ 100 mls/hr IVPB DAILY [facility] Last Admin: 06/17/17 09:21 Dose: 100 mls/hr Methylprednisolone Sodium Succinate (Solu-Medrol -) 40 mg IVPB BID [facility] Last Admin: 06/17/17 09:21 Dose: 40 mg Rosuvastatin Calcium (Crestor -) 5 mg PO HS [facility] Last Admin: 06/16/17 21:09 Dose: 5 mg Tiotropium [place] (Spiriva -) 1 puff IH DAILY [facility] Last Admin: 06/17/17 09:21 Dose: 1 puff Verapamil HCl (Calan Sr -) 240 mg PO DAILY [facility] Last Admin: 06/17/17 09:20 Dose: 240 mg - Objective Vital Signs: Vital Signs Temperature 97.9 F 06/17/17 14:00 Pulse Rate 75 06/17/17 14:00 Respiratory Rate 17 06/17/17 14:00 Blood Pressure 140/79 06/17/17 14:00 O2 Sat by Pulse Oximetry (%) 91 L 06/17/17 12:00 Constitutional: Yes: Well Nourished, No Distress, Calm Cardiovascular: Yes: Regular Rate and Rhythm Respiratory: Yes: Regular, On Nasal O2 Extremities: Yes: WNL Neurological: Yes: Alert, Oriented Psychiatric: Yes: Alert, Oriented Labs: CBC, BMP 06/16/17 09:15 06/16/17 09:15 Problem List - Problems (1) Acute respiratory failure with hypercapnia Assessment/Plan: -seen by pulmonary -on nasal o2 -desaturates off nasal O2, may need O2 evaluation for home before discharge -on IV steroids and abx Code(s): J96.02 - ACUTE RESPIRATORY FAILURE WITH HYPERCAPNIA (2) COPD exacerbation Assessment/Plan: -CT chest reviewed-atelectasis secondary to sputum impaction of the airway -Spo2 on room air is 86% at rest. encouraged to keep oxygen on, would re- evaluate that prior to discharge Code(s): J44.1 - CHRONIC OBSTRUCTIVE PULMONARY DISEASE W (ACUTE) EXACERBATION (3) Encounter for smoking cessation counseling Code(s): Z71.6 - TOBACCO ABUSE COUNSELING Z72.0 - TOBACCO USE (4) CAD (coronary artery disease) Assessment/Plan: -Echo done -EF56.7% -no LV dysfunction Code(s): I25.10 - ATHSCL HEART DISEASE OF [place] CORONARY ARTERY W/O ANG PCTRS (5) DM2 (diabetes mellitus, type 2) Assessment/Plan: -BGM's -repeat HgA1c in AM to confirm, not on any medications at home Code(s): E11.9 - TYPE 2 DIABETES MELLITUS WITHOUT COMPLICATIONS Assessment/Plan see problem list
[2017-06-17] MEDS ORDERED: oxyCODONE HCL 5 MG TABLET PO PRN (18:31)
[2017-06-17] MEDS: ROSUVASTATIN CA 5 MG TABLET (FP) PO SCH (21:27)
[2017-06-18 08:41] LABS: BASOPHIL 0.1 % (0-2.0); MCH 30.2 pg (25.7-33.7); MCHC 32.9 g/dl (32.0-36.0); MEAN CELL VOLUME 91.7 fl (80-96); NEUTROPHILS 87.4 % (42.8-82.8); PLATELET COUNT 264 K/MM3 (134-434); RDW 14.6 % (11.6-15.6)
[2017-06-18 09:18] LABS: ALBUMIN 3.1 g/dl (3.4-5.0); ANION GAP 8 (8-16); CO2 29 mmol/L (21-32); GLUCOSE,RANDOM 135 mg/dL (74-106)
[2017-06-18 09:22] LABS: ALK PHOS 59 U/L (45-117); BILIRUBIN,TOTAL 0.4 mg/dL (0.2-1.0); CHOLESTEROL 231 mg/dL (50-200); CREATININE 0.8 mg/dL (0.55-1.02); SGOT/AST 6 U/L (15-37); SGPT/ALT 23 U/L (12-78); TOT PROT 6.1 g/dl (6.4-8.2)
[2017-06-18] MEDS ORDERED: PT OWN MED DRAWER 7, Y5N ONE (09:56)
[2017-06-18] MEDS: ASPIRIN COATED 81 MG TABLET.EC PO SCH (09:57)
[2017-06-18] MEDS: VERAPAMIL HCL 240 MG E.R. TABLET (FP) PO SCH (09:57)
[2017-06-18] MEDS: HEPARIN NA (PORCINE) 5,000 UNITS/ML 1ML VIAL SQ SCH ×2 (09:58→10:14)
[2017-06-18] MEDS: BUDESONIDE/FORMETEROL FUMARATE 160/4.5 mcg INHALER IH SCH (09:58)
[2017-06-18] MEDS: LEVOFLOXACIN 500 MG IVPB 100 ML IVPB SCH (09:58)
[2017-06-18] MEDS: TIOTROPIUM BROMIDE 18 MCG/INH (DEVICE W/ 5 CAPSULES) IH SCH (09:58)
[2017-06-18] MEDS: methylPREDNISolone NA SUCC 40 MG/1 ML VIAL IVPB SCH (09:58)
--- NOTE | 2017-06-18 10:17 | PN ---
Progress Note (short form) - Note Progress Note: OOB to chair on RA. Reports feeling comfortable. No CP or SOB. Intake & Output 06/15/17 06/16/17 06/17/17 06/18/17 23:59 23:59 23:59 23:59 Intake Total 600 600 800 100 Balance 600 600 800 100 Last Vital Signs Temp Pulse Resp BP Pulse Ox 98 F 88 20 142/92 92 L 06/18/17 10:14 06/18/17 10:14 06/18/17 10:14 06/18/17 10:14 06/17/17 21:00 Active Medications Acetaminophen (Tylenol -) 650 mg PO Q6H PRN PRN Reason: FEVER OR PAIN Albuterol Sulfate (Ventolin 0.083% Nebulizer Soln -) 1 amp NEB Q4H PRN PRN Reason: SHORT OF BREATH/WHEEZING Last Admin: 06/15/17 09:08 Dose: 1 amp Aspirin (Ecotrin -) 81 mg PO DAILY [facility] Last Admin: 06/18/17 09:57 Dose: 81 mg Budesonide/Formoterol Fumarate (Symbicort 160/4.5mcg -) 2 puff IH BID [facility] Last Admin: 06/18/17 09:58 Dose: 2 puff Heparin Sodium (Porcine) (Heparin -) 5,000 unit SQ BID [facility] Last Admin: 06/18/17 10:14 Dose: Not Given Levofloxacin (Levaquin 500 Mg Premixed Ivpb -) 100 mls @ 100 mls/hr IVPB DAILY [facility] Last Admin: 06/18/17 09:58 Dose: 100 mls/hr Methylprednisolone Sodium Succinate (Solu-Medrol -) 40 mg IVPB BID [facility] Last Admin: 06/18/17 09:58 Dose: 40 mg Oxycodone HCl (Roxicodone -) 10 mg PO TID PRN PRN Reason: PAIN Rosuvastatin [place] (Crestor -) 5 mg PO HS [facility] Last Admin: 06/17/17 21:27 Dose: 5 mg Tiotropium [place] (Spiriva -) 1 puff IH DAILY [facility] Last Admin: 06/18/17 09:58 Dose: 1 puff Verapamil HCl (Calan Sr -) 240 mg PO DAILY [facility] Last Admin: 06/18/17 09:57 Dose: 240 mg Constitutional: Yes: Awake and alert, NAD Eyes: Yes: WNL HENT: Yes: WNL Neck: Yes: WNL Cardiovascular: Yes: WNL Respiratory: Yes: Cough, On Nasal O2, Bilateral scattered rhonchi, no wheeze Gastrointestinal: Yes: WNL Renal/: Yes: WNL Musculoskeletal: Yes: WNL Extremities: Yes: WNL Edema: No Peripheral Pulses WNL: Yes Integumentary: Yes: WNL Neurological: Yes: WNL ...Motor Strength: WNL Psychiatric: Yes: WNL Laboratory Results - last 24 hr 06/17/17 06/17/17 06/18/17 17:19 23:20 07:50 WBC 12.0 H D RBC 4.52 Hgb 13.6 Hct 41.4 MCV 91.7 MCH 30.2 MCHC 32.9 RDW 14.6 Plt Count 264 MPV 8.0 Neutrophils % 87.4 H D Lymphocytes % 8.1 D Monocytes % 4.4 Eosinophils % 0.0 D Basophils % 0.1 Sodium Potassium Chloride Carbon Dioxide Anion Gap BUN Creatinine Creat Clearance w eGFR POC Glucometer 190 136 Random Glucose Hemoglobin A1c % Calcium Total Bilirubin AST ALT Alkaline Phosphatase Total Protein Albumin Triglycerides Cholesterol Total LDL Cholesterol HDL Cholesterol 06/18/17 06/18/17 07:50 07:50 WBC RBC Hgb Hct MCV MCH MCHC RDW Plt Count MPV Neutrophils % Lymphocytes % Monocytes % Eosinophils % Basophils % Sodium 139 Potassium 4.6 Chloride 102 Carbon Dioxide 29 Anion Gap 8 BUN 29 H Creatinine 0.8 Creat Clearance w eGFR > 60 POC Glucometer Random Glucose 135 H D Hemoglobin A1c % 6.4 H Calcium 9.0 Total Bilirubin 0.4 D AST 6 L D ALT 23 D Alkaline Phosphatase 59 Total Protein 6.1 L Albumin 3.1 L Triglycerides 211 H Cholesterol 231 H D Total LDL Cholesterol 121 H HDL Cholesterol 71 H D Problem List - Problems (1) COPD exacerbation Code(s): J44.1 - CHRONIC OBSTRUCTIVE PULMONARY DISEASE W (ACUTE) EXACERBATION (2) ASHD (arteriosclerotic heart disease) Code(s): I25.10 - ATHSCL HEART DISEASE OF [place] CORONARY ARTERY W/O ANG PCTRS (3) DM2 (diabetes mellitus, type 2) Code(s): E11.9 - TYPE 2 DIABETES MELLITUS WITHOUT COMPLICATIONS (4) Smoker Code(s): F17.200 - NICOTINE DEPENDENCE, UNSPECIFIED, UNCOMPLICATED (5) Tobacco abuse Code(s): Z72.0 - TOBACCO USE (6) Acute respiratory failure with hypercapnia Code(s): J96.02 - ACUTE RESPIRATORY FAILURE WITH HYPERCAPNIA (7) Encounter for smoking cessation counseling Code(s): Z71.6 - TOBACCO ABUSE COUNSELING Z72.0 - TOBACCO USE IMP ACUTE HYPERCAPNEIC RESPIRATORY FAILURE COPD EXACERBATION ASHD S/P STENT HTN HLD TOBACCO ABUSE PLAN CAN CHANGE TO PREDNISONE TAPER INHALED BRONCHODILATORS O2 PFTS OUTPATIENT SMOKING CESSATION COUNSELED : PATIENT REPORTS THAT SHE USED TO HAVE HOME O2 AND RETURNED IT SINCE SHE STILL SMOKES IN HER HOME NO PULMONARY CONTRAINDICATION FOR D/C Dr Robertson
--- NOTE | 2017-06-18 13:34 | DS ---
Physical Examination Vital Signs: Vital Signs Temperature 98 F 06/18/17 10:14 Pulse Rate 81 06/18/17 12:14 Respiratory Rate 20 06/18/17 10:14 Blood Pressure 142/92 06/18/17 10:14 O2 Sat by Pulse Oximetry (%) 88 L 06/18/17 12:14 Findings/Remarks: Sitting in chair, no acute distress. Patient is a candidate for home O2 with her Spo2 at 86% on room air at rest. Constitutional: Yes: Well Nourished, No Distress, Calm Cardiovascular: Yes: Regular Rate and Rhythm Respiratory: Yes: Regular, Diminished (BLL) Musculoskeletal: Yes: WNL Extremities: Yes: WNL Edema: No Peripheral Pulses WNL: Yes Neurological: Yes: Alert, Oriented Psychiatric: Yes: Alert, Oriented Labs: CBC, BMP 06/18/17 07:50 06/18/17 07:50 Discharge Summary Reason For Visit: SOB Current Active Problems Acute respiratory failure with hypercapnia (Acute) COPD exacerbation (Acute) Dizziness (Acute) Encounter for smoking cessation counseling (Acute) Hospital Course: 77y F hx of COPD, dm, htn, hl, gerd, presents with worsening cough/chest tightness for the past week. +increased sputum production that is whitish in color, without associated fever/chills, n/v, leg swelling, palpitations. During her stay, her CT chest was significant for COPD and impaction with phlegm. She was given IV steroids and would be going home with tapering dose steroids and home O2. Condition: Improved - Instructions Diet, Activity, Other Instructions: Follow up with PCP within 2 weeks. Disposition: HOME - Home Medications Comprehensive Discharge Medication List: Ambulatory Orders Cholecalciferol (Vitamin D3) [Vitamin D3 -] 1,000 units PO DAILY 06/14/15 Cyanocobalamin [Vitamin B12 -] 100 mcg PO DAILY 06/14/15 Ipratropium/Albuterol Sulfate [Iprat-Albut 0.5-3(2.5) mg/3 ml] 1 neb IH QID PRN 06/14/15 [place]-3 Fatty Acids/Fish Oil [Fish Oil 1,000 mg Softgel] 1 each PO DAILY Rosuvastatin Calcium [Crestor] 40 mg PO DAILY 06/14/15 Aspirin Coated [Ecotrin -] 81 mg PO DAILY tablet.ec 06/15/15 Albuterol Sulfate Inhaler - [Ventolin HFA Inhaler -] 1 puff IH Q4H PRN #1 08/29 Salmeterol/Fluticasone [Advair 100Mcg/50Mcg -] 1 puff PO BID #1 inhaler Tiotropium [place] [Spiriva] 18 puff IH DAILY #1 inh 08/29/15 Budesonide/Formeterol Fumarate [SYMBICORT 160/4.5mcg -] 2 puff IH BID inhaler 08/30/15 Verapamil HCl ER [Calan Sr -] 120 mg PO DAILY #30 tablet.er 09/19/16
[2017-06-18 13:46] VITALS: BP 133/68; PULSE 69; TEMP 98.3
--- NOTE | 2017-06-18 13:50 | PN ---
Progress Note, Physician Chief Complaint: SOB History of Present Illness: NAD, sitting in chair off oxygen, no SOB seen by Pulmonary - Current Medication List Current Medications: Active Medications Acetaminophen (Tylenol -) 650 mg PO Q6H PRN PRN Reason: FEVER OR PAIN Albuterol Sulfate (Ventolin 0.083% Nebulizer Soln -) 1 amp NEB Q4H PRN PRN Reason: SHORT OF BREATH/WHEEZING Last Admin: 06/15/17 09:08 Dose: 1 amp Aspirin (Ecotrin -) 81 mg PO DAILY [facility] Last Admin: 06/18/17 09:57 Dose: 81 mg Budesonide/Formoterol Fumarate (Symbicort 160/4.5mcg -) 2 puff IH BID [facility] Last Admin: 06/18/17 09:58 Dose: 2 puff Heparin Sodium (Porcine) (Heparin -) 5,000 unit SQ BID [facility] Last Admin: 06/18/17 10:14 Dose: Not Given Levofloxacin (Levaquin 500 Mg Premixed Ivpb -) 100 mls @ 100 mls/hr IVPB DAILY [facility] Last Admin: 06/18/17 09:58 Dose: 100 mls/hr Methylprednisolone Sodium Succinate (Solu-Medrol -) 40 mg IVPB BID [facility] Last Admin: 06/18/17 09:58 Dose: 40 mg Oxycodone HCl (Roxicodone -) 10 mg PO TID PRN PRN Reason: PAIN Rosuvastatin Calcium (Crestor -) 5 mg PO HS [facility] Last Admin: 06/17/17 21:27 Dose: 5 mg Tiotropium [place] (Spiriva -) 1 puff IH DAILY [facility] Last Admin: 06/18/17 09:58 Dose: 1 puff Verapamil HCl (Calan Sr -) 240 mg PO DAILY [facility] Last Admin: 06/18/17 09:57 Dose: 240 mg - Objective Vital Signs: Vital Signs Temperature 98.3 F 06/18/17 13:44 Pulse Rate 69 06/18/17 13:44 Respiratory Rate 17 06/18/17 13:44 Blood Pressure 133/68 06/18/17 13:44 O2 Sat by Pulse Oximetry (%) 88 L 06/18/17 12:14 Constitutional: Yes: Well Nourished, No Distress, Calm Cardiovascular: Yes: Regular Rate and Rhythm Respiratory: Yes: Regular, Diminished (BLLE) Musculoskeletal: Yes: WNL Extremities: Yes: WNL Edema: No Peripheral Pulses WNL: Yes Neurological: Yes: Alert, Oriented Psychiatric: Yes: Alert, Oriented Labs: CBC, BMP 06/18/17 07:50 06/18/17 07:50 Problem List - Problems (1) Acute respiratory failure with hypercapnia Assessment/Plan: -seen by pulmonary -on nasal o2 -desaturates off nasal O2, -change IV steroid to PO Code(s): J96.02 - ACUTE RESPIRATORY FAILURE WITH HYPERCAPNIA (2) COPD exacerbation Assessment/Plan: -CT chest reviewed-atelectasis secondary to sputum impaction of the airway -Spo2 on room air is 86% at rest. encouraged to keep oxygen on, would re- evaluate that prior to discharge Code(s): J44.1 - CHRONIC OBSTRUCTIVE PULMONARY DISEASE W (ACUTE) EXACERBATION (3) Encounter for smoking cessation counseling Code(s): Z71.6 - TOBACCO ABUSE COUNSELING Z72.0 - TOBACCO USE (4) CAD (coronary artery disease) Assessment/Plan: -Echo done -EF56.7% -no LV dysfunction Code(s): I25.10 - ATHSCL HEART DISEASE OF [place] CORONARY ARTERY W/O ANG PCTRS (5) DM2 (diabetes mellitus, type 2) Assessment/Plan: -BGM's -repeat HgA1c 6.4, would hold off treatment and encourage lifestyle modification. Code(s): E11.9 - TYPE 2 DIABETES MELLITUS WITHOUT COMPLICATIONS Assessment/Plan see problem list
== END 2017-06-18 16:30 | disposition home or self-care (01) | DRG 190 ==
LOC: JER 22:10 → JERBED 23:59 → OBSVTOIN 06-14 → J6S 06-14 01:58 → JERBED 06-14 02:48 → J6S 06-14 02:49
PROVIDERS: ADMIT Family Medicine; ATTEND Family Medicine
DX: J44.1 Chronic obstructive pulmonary disease with (acute) exacerbation (principal); J96.02 Acute respiratory failure with hypercapnia; J98.11 Atelectasis; E11.9 Type 2 diabetes mellitus without complications; I10 Essential (primary) hypertension; E78.5 Hyperlipidemia, unspecified; K21.9 Gastro-esophageal reflux disease without esophagitis; I25.10 Atherosclerotic heart disease of native coronary artery without angina pectoris; Z95.5 Presence of coronary angioplasty implant and graft; F17.210 Nicotine dependence, cigarettes, uncomplicated
CPT/HCPCS: 36415; 36600; 71010-TC; 71250-TC; 80053; 80061; 82550; 82803; 83036; 83721; 83735; 84484; 85025; 85027; 87804; 93005; 93010; 93306-TC; 94640; 94761; 99282-25; 99285-25; G0378; J1644

== ENCOUNTER 2018-03-01 06:03 | Day surgery (SDC) | payer OTHER ==
[2018-02-18 19:50] VITALS: BMI 27.9
[2018-03-01] MEDS ORDERED: LIDOCAINE HCL 2% JELLY 10 ML CARTRIDGE ONE (07:27)
[2018-03-01] MEDS ORDERED: LIDOCAINE HCL/PF 2% SDV 5ML VIAL ONE (08:15)
[2018-03-01] MEDS ORDERED: PROPOFOL 20 ML ONE (08:15)
[2018-03-01] MEDS ORDERED: MIDAZOLAM HCL 2 MG/2 ML SINGLE DOSE VIAL ONE (08:16)
--- NOTE | 2018-03-01 09:00 | OP ---
Operative Note - Note: Operative Date: 03/01/18 Pre-Operative Diagnosis: bladder tumor Operation: transurethral resection and vaporization of the bladder Findings: 5+ cm bladder tumor involving right posterior bladder approaching dome Post-Operative Diagnosis: Same as Pre-op Surgeon: Bryce Telles Anesthesia: General Specimens Removed: bladder tumor Estimated Blood Loss (mls): 10 Drains & Tubes with Location: 22 [place] teixeira catheter
[2018-03-01] MEDS ORDERED: ONDANSETRON 4 MG/2 ML VIAL IVPUSH PRN (09:01)
[2018-03-01] MEDS ORDERED: ACETAMINOPHEN 325 MG TABLET (FP) PO PRN (09:01)
[2018-03-01] MEDS ORDERED: oxyCODONE HCL 5 MG TABLET PO PRN (09:01)
[2018-03-01] MEDS ORDERED: LACTATED RINGERS SOLUTION 1,000 ML IV SCH (09:15)
[2018-03-01 12:16] VITALS: BP 155/95; PULSE 76; TEMP 98
--- NOTE | 2018-03-01 20:15 | OP ---
DATE OF OPERATION: 03/01/2018 PREOPERATIVE DIAGNOSIS: Bladder tumor. POSTOPERATIVE DIAGNOSIS: Bladder tumor. PROCEDURE: Transurethral resection and vaporization of bladder tumor. ATTENDING: Adali Martínez MD ANESTHESIA: General. DESCRIPTION OF OPERATION: The patient was brought in the operating room and placed in supine position on the operating room table. Anesthesia and preoperative antibiotics were administered to the patient. Cystoscopy was performed, and a [id number] bladder tumor was noted in the right posterior bladder at the level just before the dome. The lesion measured greater than 5 cm. At this point, a bipolar system for resection was utilized. Resection of the bladder tumor was performed, and specimens were sent to Pathology. The base of the bladder tumor measured greater than 5 cm. With the bladder tumor debulked and adequate tissue resected, vaporization of the residual tumor and muscle wall was performed. An area greater than 8 cm was involved in the fulguration and vaporization due to irregular tissue noted within the area of the bladder tumor. The depth of the resection and vaporization was to the deep muscle of the bladder. No evidence of perforation was noted clinically or on inspection. Excellent hemostasis was obtained. The patient was left with a Myles catheter to straight drainage and will be discharged home. No complications were noted. The patient tolerated the procedure very well. ADALI MARTÍNEZ M.D. [id number]
--- NOTE | 2018-03-02 13:41 | PATH ---
Surgical Pathology Report Patient Name: KRYSTLE CHAVEZ [facility]. Rec. #: [id number] /Age/Gender: 1940 (Age: 77) / F Account: [id number] Location: [facility] SURGICAL Taken: 03/01/2018 Received: 03/01/2018 Reported: 03/02/2018 Physicians: Bryce Telles Specimen(s) Received BLADDER TUMOR Clinical History Bladder tumor Final Diagnosis BLADDER TUMOR, BIOPSY: INVASIVE PAPILLARY UROTHELIAL CARCINOMA, HIGH GRADE. NO MUSCULARIS PROPRIA PRESENT. Intradepartmental case reviewed with consensus on diagnosis. This case is discussed with Dr. Blair, on March 02, 2018. Electronically Signed Aaron Briscoe M.D. Gross Description Received in formalin labeled "bladder tumor," is a 2.2 x 2.1 x 0.3 cm aggregate of magallanes soft tissue fragments. The formalin is filtered and the specimen is entirely submitted in one cassette. /03/01/2018 saudi03/01/2018
== END 2018-03-01 12:16 | disposition home or self-care (01) ==
LOC: JASU-SURG 06:03
PROVIDERS: ATTEND Urology
PROC: 0T5B8ZZ Destruction of Bladder, Via Natural or Artificial Opening Endoscopic (ICD-10-PCS; principal; 2018-03-01 08:00)
DX: C67.9 Malignant neoplasm of bladder, unspecified (principal)
CPT/HCPCS: 88305-TC; 94760

== ENCOUNTER 2023-03-20 17:13 | Inpatient (IN) | payer OTHER ==
[2023-03-20] MEDS ORDERED: DEXAMETHASONE SOD PHOSPHATE 10 MG/1 ML VIAL IVPUSH ONE (18:38)
[2023-03-20] MEDS ORDERED: DEXAMETHASONE SOD PHOSPHATE 10 MG/1 ML VIAL ONE (18:55)
[2023-03-20] MEDS ORDERED: ALBUTEROL SO4 2.5/IPRATROPIUM 0.5 INH SOL 3 ML VIAL.NEB. NEB ONE ×2 (18:55→19:44)
[2023-03-20] MEDS: ALBUTEROL SO4 2.5/IPRATROPIUM 0.5 INH SOL 3 ML VIAL.NEB. NEB SCH ×3 (19:01→21:35)
[2023-03-20] MEDS ORDERED: ACETAMINOPHEN 1000 MG/100 ML BAG IVPB ONE (19:30)
[2023-03-20] MEDS ORDERED: ACETAMINOPHEN INJECTION 100 ML IVPB ONE (19:45)
[2023-03-20 19:53] LABS: BASO % 0.5 % (0-2.0); HEMATOCRIT 40.3 % (32.4-45.2); LYMPH % 16.4 % (8-40); MCH 28.2 pg (25.7-33.7); MCHC 32.3 g/dl (32.0-36.0); MEAN CELL VOLUME 87.2 fl (80-96); MEAN PLT VOLUME 8.5 fl (7.5-11.1); MONO % 7.7 % (3.8-10.2); NEUT % 73.4 % (42.8-82.8); PLATELET COUNT 312 10^3/uL (134-434); RBC 4.62 M/mm3 (3.60-5.2); RDW 15.8 % (11.6-15.6)
[2023-03-20 19:57] LABS: INR 1.24 (0.83-1.09); PROTHROMBIN TIME (PATIENT) 14.3 SEC (9.7-13.0)
[2023-03-20 20:10] LABS: POTASSIUM 5.1 mmol/L (3.5-5.1)
[2023-03-20 20:13] LABS: CALCIUM 9.6 mg/dL (8.5-10.1)
[2023-03-20 20:14] LABS: ALBUMIN 3.6 g/dl (3.4-5.0); BLOOD UREA NITROGEN 17.1 mg/dL (7-18)
[2023-03-20 20:17] LABS: CREATININE 0.9 mg/dL (0.55-1.3)
[2023-03-20 20:18] LABS: BILIRUBIN,TOTAL 0.4 mg/dL (0.2-1); TOT PROT 7.9 g/dl (6.4-8.2)
[2023-03-20 20:54] LABS: VENOUS BASE EXCESS 0.9 mmol/L (-2-2); VENOUS O2 SATURATION 89.3 % (70-80); VENOUS PH 7.366 (7.310-7.410)
[2023-03-20] MEDS ORDERED: AZITHROMYCIN IVPB 500 MG in DEXTROSE 5%-WATER - 250 ML IVPB ONE (20:55)
[2023-03-20] MEDS ORDERED: AZITHROMYCIN IVPB 500 MG/250 ML BAG IVPB ONE (21:25)
[2023-03-21] MEDS: methylPREDNISolone NA SUCC 40 MG/1 ML VIAL IVPUSH SCH ×3 (06:39→17:06)
[2023-03-21] MEDS: ALBUTEROL SO4 2.5/IPRATROPIUM 0.5 INH SOL 3 ML VIAL.NEB. NEB SCH ×4 (08:10→20:30)
[2023-03-21 09:57] LABS: HEMATOCRIT 36.5 % (32.4-45.2); HEMOGLOBIN 11.8 GM/dL (10.7-15.3); MCH 28.2 pg (25.7-33.7); MCHC 32.3 g/dl (32.0-36.0); MEAN CELL VOLUME 87.4 fl (80-96); MEAN PLT VOLUME 7.7 fl (7.5-11.1); PLATELET COUNT 236 10^3/uL (134-434); RBC 4.18 M/mm3 (3.60-5.2); RDW 15.4 % (11.6-15.6); WHITE BLOOD COUNT 4.3 K/mm3 (4.0-10.0)
[2023-03-21] MEDS ORDERED: AZITHROMYCIN IVPB 500 MG in DEXTROSE 5%-WATER - 250 ML IVPB SCH (10:00)
[2023-03-21] MEDS: DOXYCYCLINE INJECTION 100 MG in DEXTROSE 5%-WATER 100 ML IVPB SCH ×2 (10:08→21:26)
[2023-03-21] MEDS: BUDESONIDE/FORMETEROL FUMARATE 160/4.5 mcg INHALER IH SCH ×2 (10:08→21:26)
[2023-03-21] MEDS: ENOXAPARIN NA (PORCINE) 40 MG/0.4 ML DISP.SYRIN SQ SCH (10:09)
[2023-03-21 10:12] LABS: POTASSIUM 4.5 mmol/L (3.5-5.1)
[2023-03-21 10:15] LABS: CALCIUM 9.1 mg/dL (8.5-10.1)
[2023-03-21 10:16] LABS: ALBUMIN 3.2 g/dl (3.4-5.0); BLOOD UREA NITROGEN 26.7 mg/dL (7-18); MAGNESIUM 2.2 mg/dL (1.8-2.4)
[2023-03-21 10:20] LABS: BILIRUBIN,TOTAL 0.5 mg/dL (0.2-1)
[2023-03-21] MEDS: guaiFENesin 200 MG/10 ML 10 ML UNIT-DOSE CUPS PO PRN (11:27)
[2023-03-21] MEDS: INSULIN SLIDING SCALE (NOVOLOG) 1 VIAL SQ SCH (21:30)
[2023-03-21 23:42] LABS: EPI CELLS 17 /uL (0-25.1); HYALINE CASTS 0 /uL (0-3.1); URINE APPEARANCE TURBID; URINE BACTERIA 4576 /uL (0-1359); URINE BILIRUBIN NEGATIVE (NEGATIVE); URINE COLOR YELLOW; URINE GLUCOSE (UA) NEGATIVE (NEGATIVE); URINE KETONE NEGATIVE (NEGATIVE); URINE LEUK ESTERASE 3+ (NEGATIVE); URINE NITRITE POSITIVE (NEGATIVE); URINE PROTEIN 1+ (NEGATIVE); URINE UROBILINOGEN 0.2 mg/dL (0.2-1.0); URINE WBC 4741 /uL (0-25.8)
[2023-03-21 23:45] LABS: URINE RBC 33.3 /uL (0-23.9)
[2023-03-22] MEDS: methylPREDNISolone NA SUCC 40 MG/1 ML VIAL IVPUSH SCH ×3 (02:16→23:22)
[2023-03-22] MEDS: INSULIN SLIDING SCALE (NOVOLOG) 1 VIAL SQ SCH ×4 (06:06→23:30)
[2023-03-22] MEDS: ALBUTEROL SO4 2.5/IPRATROPIUM 0.5 INH SOL 3 ML VIAL.NEB. NEB SCH ×4 (07:26→20:49)
[2023-03-22] MEDS: ENOXAPARIN NA (PORCINE) 40 MG/0.4 ML DISP.SYRIN SQ SCH (09:36)
[2023-03-22] MEDS: DOXYCYCLINE INJECTION 100 MG in DEXTROSE 5%-WATER 100 ML IVPB SCH ×2 (09:36→23:22)
[2023-03-22] MEDS: BUDESONIDE/FORMETEROL FUMARATE 160/4.5 mcg INHALER IH SCH ×2 (09:37→10:21)
[2023-03-22 10:02] LABS: CHOLESTEROL 261 mg/dL (50-200)
[2023-03-22 10:04] LABS: HDL CHOLESTEROL 42 mg/dL (40-60); LDL CHOLESTEROL (ONLY SJRH) 195 mg/dL (5-100)
[2023-03-22] MEDS: guaiFENesin 200 MG/10 ML 10 ML UNIT-DOSE CUPS PO PRN (17:07)
[2023-03-23] MEDS: INSULIN SLIDING SCALE (NOVOLOG) 1 VIAL SQ SCH ×4 (07:23→21:51)
[2023-03-23] MEDS: ALBUTEROL SO4 2.5/IPRATROPIUM 0.5 INH SOL 3 ML VIAL.NEB. NEB SCH ×4 (07:35→20:38)
[2023-03-23] MEDS: DOXYCYCLINE INJECTION 100 MG in DEXTROSE 5%-WATER 100 ML IVPB SCH (09:55)
[2023-03-23] MEDS: guaiFENesin 200 MG/10 ML 10 ML UNIT-DOSE CUPS PO PRN (09:55)
[2023-03-23] MEDS: methylPREDNISolone NA SUCC 40 MG/1 ML VIAL IVPUSH SCH ×2 (09:56→18:40)
[2023-03-23] MEDS: ENOXAPARIN NA (PORCINE) 40 MG/0.4 ML DISP.SYRIN SQ SCH (09:56)
[2023-03-23] MEDS: BUDESONIDE/FORMETEROL FUMARATE 160/4.5 mcg INHALER IH SCH ×2 (09:57→21:48)
[2023-03-23] MEDS: NITROFURANTOIN MACROCRYSTAL 50 MG CAPSULE (FP) PO SCH ×2 (14:59→18:40)
[2023-03-23] MEDS ORDERED: INSULIN (NOVOLOG) ASPART 100 UNITS/ML 10ML VIAL ONE (21:21)
[2023-03-23] MEDS: ATORVASTATIN CA 20 MG TABLET (FP) PO SCH (21:47)
[2023-03-24] MEDS: NITROFURANTOIN MACROCRYSTAL 50 MG CAPSULE (FP) PO SCH ×4 (01:14→17:30)
[2023-03-24] MEDS: methylPREDNISolone NA SUCC 40 MG/1 ML VIAL IVPUSH SCH ×3 (01:14→17:30)
[2023-03-24] MEDS: INSULIN SLIDING SCALE (NOVOLOG) 1 VIAL SQ SCH ×4 (06:14→21:45)
[2023-03-24] MEDS: ALBUTEROL SO4 2.5/IPRATROPIUM 0.5 INH SOL 3 ML VIAL.NEB. NEB SCH ×4 (07:46→20:08)
[2023-03-24] MEDS: BUDESONIDE/FORMETEROL FUMARATE 160/4.5 mcg INHALER IH SCH ×2 (10:41→21:45)
[2023-03-24] MEDS: ENOXAPARIN NA (PORCINE) 40 MG/0.4 ML DISP.SYRIN SQ SCH (10:41)
[2023-03-24] MEDS ORDERED: INSULIN (NOVOLOG) ASPART 100 UNITS/ML 10ML VIAL ONE (17:55)
[2023-03-24] MEDS: ATORVASTATIN CA 20 MG TABLET (FP) PO SCH (21:45)
[2023-03-25] MEDS: methylPREDNISolone NA SUCC 40 MG/1 ML VIAL IVPUSH SCH ×3 (01:05→21:11)
[2023-03-25] MEDS: NITROFURANTOIN MACROCRYSTAL 50 MG CAPSULE (FP) PO SCH ×4 (01:05→17:51)
[2023-03-25] MEDS: INSULIN SLIDING SCALE (NOVOLOG) 1 VIAL SQ SCH ×4 (06:03→21:16)
[2023-03-25] MEDS: ALBUTEROL SO4 2.5/IPRATROPIUM 0.5 INH SOL 3 ML VIAL.NEB. NEB SCH ×4 (07:22→20:44)
[2023-03-25] MEDS: ENOXAPARIN NA (PORCINE) 40 MG/0.4 ML DISP.SYRIN SQ SCH (09:38)
[2023-03-25] MEDS: BUDESONIDE/FORMETEROL FUMARATE 160/4.5 mcg INHALER IH SCH ×2 (09:39→21:16)
[2023-03-25 10:16] LABS: BASO % 0.2 % (0-2.0); HEMATOCRIT 35.9 % (32.4-45.2); HEMOGLOBIN 12.1 GM/dL (10.7-15.3); LYMPH % 7.2 % (8-40); MCH 28.8 pg (25.7-33.7); MCHC 33.7 g/dl (32.0-36.0); MEAN CELL VOLUME 85.5 fl (80-96); MEAN PLT VOLUME 7.6 fl (7.5-11.1); MONO % 5.7 % (3.8-10.2); NEUT % 86.9 % (42.8-82.8); PLATELET COUNT 283 10^3/uL (134-434); RDW 15.7 % (11.6-15.6); WHITE BLOOD COUNT 12.7 K/mm3 (4.0-10.0)
[2023-03-25 10:59] LABS: POTASSIUM 4.5 mmol/L (3.5-5.1)
[2023-03-25 11:06] LABS: BLOOD UREA NITROGEN 40.3 mg/dL (7-18)
[2023-03-25 11:07] LABS: ALBUMIN 3.3 g/dl (3.4-5.0); CALCIUM 10.1 mg/dL (8.5-10.1)
[2023-03-25 11:10] LABS: CREATININE 0.9 mg/dL (0.55-1.3)
[2023-03-25 11:12] LABS: BILIRUBIN,TOTAL 0.4 mg/dL (0.2-1); TOT PROT 6.9 g/dl (6.4-8.2)
[2023-03-25] MEDS ORDERED: ACETAMINOPHEN 325 MG TABLET (FP) PO PRN (13:14)
[2023-03-25] MEDS: ATENOLOL 25 MG TABLET (FP) PO SCH (14:59)
[2023-03-25] MEDS: ATORVASTATIN CA 20 MG TABLET (FP) PO SCH (21:10)
[2023-03-26] MEDS: NITROFURANTOIN MACROCRYSTAL 50 MG CAPSULE (FP) PO SCH ×5 (00:40→23:33)
[2023-03-26] MEDS: INSULIN SLIDING SCALE (NOVOLOG) 1 VIAL SQ SCH ×4 (06:02→21:34)
[2023-03-26] MEDS: methylPREDNISolone NA SUCC 40 MG/1 ML VIAL IVPUSH SCH ×2 (09:21→21:31)
[2023-03-26] MEDS: ENOXAPARIN NA (PORCINE) 40 MG/0.4 ML DISP.SYRIN SQ SCH (09:21)
[2023-03-26] MEDS: ATENOLOL 25 MG TABLET (FP) PO SCH (09:22)
[2023-03-26] MEDS: BUDESONIDE/FORMETEROL FUMARATE 160/4.5 mcg INHALER IH SCH ×2 (09:22→21:34)
[2023-03-26] MEDS: ATORVASTATIN CA 20 MG TABLET (FP) PO SCH (21:31)
[2023-03-27] MEDS: NITROFURANTOIN MACROCRYSTAL 50 MG CAPSULE (FP) PO SCH ×4 (05:30→23:29)
[2023-03-27] MEDS: INSULIN SLIDING SCALE (NOVOLOG) 1 VIAL SQ SCH ×4 (06:02→21:08)
[2023-03-27] MEDS: ALBUTEROL SO4 0.083% IH SOL 2.5 MG/3 ML VIAL.NEB. NEB PRN ×3 (07:50→15:20)
[2023-03-27] MEDS: predniSONE 20 MG TABLET (UD) PO SCH (09:41)
[2023-03-27] MEDS: ATENOLOL 25 MG TABLET (FP) PO SCH (09:41)
[2023-03-27] MEDS: ENOXAPARIN NA (PORCINE) 40 MG/0.4 ML DISP.SYRIN SQ SCH (09:41)
[2023-03-27] MEDS: BUDESONIDE/FORMETEROL FUMARATE 160/4.5 mcg INHALER IH SCH ×2 (09:43→21:08)
[2023-03-27 09:51] LABS: HEMATOCRIT 36.2 % (32.4-45.2); HEMOGLOBIN 11.5 GM/dL (10.7-15.3); MCHC 31.9 g/dl (32.0-36.0); MEAN CELL VOLUME 87.9 fl (80-96); MEAN PLT VOLUME 8.2 fl (7.5-11.1); PLATELET COUNT 271 10^3/uL (134-434); RBC 4.12 M/mm3 (3.60-5.2); RDW 15.4 % (11.6-15.6); WHITE BLOOD COUNT 11.3 K/mm3 (4.0-10.0)
[2023-03-27 10:05] LABS: POTASSIUM 4.7 mmol/L (3.5-5.1)
[2023-03-27 10:10] LABS: CALCIUM 9.3 mg/dL (8.5-10.1)
[2023-03-27 10:11] LABS: BLOOD UREA NITROGEN 42.1 mg/dL (7-18)
[2023-03-27 10:15] LABS: CREATININE 0.8 mg/dL (0.55-1.3)
[2023-03-27 10:16] LABS: BILIRUBIN,TOTAL 0.6 mg/dL (0.2-1)
[2023-03-27 10:18] LABS: TOT PROT 6.4 g/dl (6.4-8.2)
[2023-03-27 10:46] LABS: ANISOCYTOSIS 1+; MACROCYTOSIS 0
[2023-03-27] MEDS: ATORVASTATIN CA 20 MG TABLET (FP) PO SCH (21:05)
[2023-03-28] MEDS: NITROFURANTOIN MACROCRYSTAL 50 MG CAPSULE (FP) PO SCH ×3 (05:41→18:13)
[2023-03-28] MEDS: INSULIN SLIDING SCALE (NOVOLOG) 1 VIAL SQ SCH ×4 (06:28→21:13)
[2023-03-28] MEDS: ALBUTEROL SO4 0.083% IH SOL 2.5 MG/3 ML VIAL.NEB. NEB PRN ×3 (07:10→15:45)
[2023-03-28] MEDS: ATENOLOL 25 MG TABLET (FP) PO SCH (09:15)
[2023-03-28] MEDS: predniSONE 20 MG TABLET (UD) PO SCH (09:15)
[2023-03-28] MEDS: BUDESONIDE/FORMETEROL FUMARATE 160/4.5 mcg INHALER IH SCH ×2 (09:15→21:11)
[2023-03-28 09:53] LABS: HEMOGLOBIN 12.6 GM/dL (10.7-15.3); MCH 28.8 pg (25.7-33.7); MCHC 32.4 g/dl (32.0-36.0); MEAN CELL VOLUME 88.7 fl (80-96); MEAN PLT VOLUME 9.3 fl (7.5-11.1); PLATELET COUNT 213 10^3/uL (134-434); RDW 15.5 % (11.6-15.6); WHITE BLOOD COUNT 10.6 K/mm3 (4.0-10.0)
[2023-03-28 10:14] LABS: POTASSIUM 4.2 mmol/L (3.5-5.1)
[2023-03-28 10:34] LABS: CALCIUM 9.4 mg/dL (8.5-10.1)
[2023-03-28 10:35] LABS: BLOOD UREA NITROGEN 34.7 mg/dL (7-18)
[2023-03-28 10:39] LABS: BILIRUBIN,TOTAL 0.7 mg/dL (0.2-1); CREATININE 0.7 mg/dL (0.55-1.3); TOT PROT 6.4 g/dl (6.4-8.2)
[2023-03-28 10:57] LABS: ANISOCYTOSIS 0; HELMET CELLS 0; HOWELL-JOLLY BODIES 0; MACROCYTOSIS 0; OVALOCYTE 0; ROULEAU 0; SICKELED CELLS 0; TARGET CELLS 0; TEAR DROP CELLS 0; TOXIC GRANULATION 0
[2023-03-28] MEDS: ATORVASTATIN CA 20 MG TABLET (FP) PO SCH (21:10)
[2023-03-28] MEDS ORDERED: INSULIN (NOVOLOG) ASPART 100 UNITS/ML 10ML VIAL ONE (21:14)
[2023-03-29] MEDS: NITROFURANTOIN MACROCRYSTAL 50 MG CAPSULE (FP) PO SCH ×5 (00:40→23:35)
[2023-03-29 05:51] VITALS: RESP 18
[2023-03-29] MEDS: INSULIN SLIDING SCALE (NOVOLOG) 1 VIAL SQ SCH ×4 (06:06→21:58)
[2023-03-29] MEDS: predniSONE 20 MG TABLET (UD) PO SCH (09:17)
[2023-03-29] MEDS: ATENOLOL 25 MG TABLET (FP) PO SCH (09:18)
[2023-03-29] MEDS: BUDESONIDE/FORMETEROL FUMARATE 160/4.5 mcg INHALER IH SCH ×2 (09:18→21:29)
[2023-03-29 13:19] VITALS: BMI 22.0
[2023-03-29] MEDS: guaiFENesin 200 MG/10 ML 10 ML UNIT-DOSE CUPS PO PRN (15:55)
[2023-03-29] MEDS ORDERED: INSULIN (NOVOLOG) ASPART 100 UNITS/ML 10ML VIAL ONE ×2 (16:52→16:55)
[2023-03-29] MEDS: ATORVASTATIN CA 20 MG TABLET (FP) PO SCH (21:29)
[2023-03-30] MEDS: NITROFURANTOIN MACROCRYSTAL 50 MG CAPSULE (FP) PO SCH ×2 (05:48→12:20)
[2023-03-30] MEDS: INSULIN SLIDING SCALE (NOVOLOG) 1 VIAL SQ SCH ×4 (06:01→21:31)
[2023-03-30] MEDS: predniSONE 20 MG TABLET (UD) PO SCH (08:59)
[2023-03-30] MEDS: ATENOLOL 25 MG TABLET (FP) PO SCH (08:59)
[2023-03-30] MEDS: BUDESONIDE/FORMETEROL FUMARATE 160/4.5 mcg INHALER IH SCH ×2 (09:00→21:32)
[2023-03-30] MEDS ORDERED: INSULIN (NOVOLOG) ASPART 100 UNITS/ML 10ML VIAL ONE (19:32)
[2023-03-30] MEDS: ATORVASTATIN CA 20 MG TABLET (FP) PO SCH (21:26)
[2023-03-31] MEDS: INSULIN SLIDING SCALE (NOVOLOG) 1 VIAL SQ SCH ×3 (06:20→17:02)
[2023-03-31 09:33] VITALS: PULSE 68
[2023-03-31] MEDS: predniSONE 20 MG TABLET (UD) PO SCH (09:48)
[2023-03-31] MEDS: ATENOLOL 25 MG TABLET (FP) PO SCH (09:48)
[2023-03-31] MEDS: BUDESONIDE/FORMETEROL FUMARATE 160/4.5 mcg INHALER IH SCH (09:49)
[2023-03-31 14:34] VITALS: BP 129/79; TEMP 98.4
[2023-03-31] MEDS ORDERED: INSULIN (NOVOLOG) ASPART 100 UNITS/ML 10ML VIAL ONE (17:10)
== END 2023-03-31 17:59 | disposition home or self-care (01) | DRG 191 ==
LOC: JER 17:13 → JERBED 19:26 → J6S 03-21 01:55
PROVIDERS: ADMIT Internal Medicine; ATTEND Internal Medicine
PROC: 0JB53ZX Excision of Left Neck Subcutaneous Tissue and Fascia, Percutaneous Approach, Diagnostic (ICD-10-PCS; principal; 2023-03-30)
DX: J44.1 Chronic obstructive pulmonary disease with (acute) exacerbation (principal); N39.0 Urinary tract infection, site not specified; J45.909 Unspecified asthma, uncomplicated; I25.10 Atherosclerotic heart disease of native coronary artery without angina pectoris; E11.9 Type 2 diabetes mellitus without complications; E78.5 Hyperlipidemia, unspecified; R13.10 Dysphagia, unspecified; D11.0 Benign neoplasm of parotid gland; K21.9 Gastro-esophageal reflux disease without esophagitis; Z95.5 Presence of coronary angioplasty implant and graft; F17.210 Nicotine dependence, cigarettes, uncomplicated
CPT/HCPCS: 0241U-QW; 36415; 70490-TC; 71045-TC-FY; 74230-TC-FY; 76536-TC; 76942-TC; 80053; 80061; 81003; 82550; 82803; 82962; 83036; 83605; 83735; 83880; 84100; 84484; 85025; 85027; 85610; 87040; 87086; 87186; 87899; 88305-TC; 92611-GN; 93005; 93010; 93306-TC; 94640; 94660; 94761; 97116-GP; 97161-GP; 99285-25; J1100

== ENCOUNTER 2024-03-05 10:34 | Inpatient (IN) | payer OTHER ==
[2024-03-05] MEDS ORDERED: ACETAMINOPHEN INJECTION 100 ML IVPB ONE (11:54)
[2024-03-05 12:01] LABS: BASO % 0.6 % (0-2.0); EOS % 2.4 % (0-4.5); HEMATOCRIT 36.3 % (32.4-45.2); HEMOGLOBIN 12.1 GM/dL (10.7-15.3); LYMPH % 14.3 % (8-40); MCH 29.5 pg (25.7-33.7); MCHC 33.3 g/dl (32.0-36.0); MEAN CELL VOLUME 88.7 fl (80-96); MEAN PLT VOLUME 7.3 fl (7.5-11.1); MONO % 5.3 % (3.8-10.2); NEUT % 77.4 % (42.8-82.8); PLATELET COUNT 291 10^3/uL (134-434); RDW 14.9 % (11.6-15.6); WHITE BLOOD COUNT 10.7 K/mm3 (4.0-10.0)
[2024-03-05] MEDS: ACETAMINOPHEN 1000 MG/100 ML BAG IVPB ONE (12:04)
[2024-03-05 12:19] LABS: POTASSIUM 5.5 mmol/L (3.5-5.1)
[2024-03-05 12:21] LABS: CALCIUM 9.3 mg/dL (8.5-10.1)
[2024-03-05 12:22] LABS: ALBUMIN 3.4 g/dl (3.4-5.0)
[2024-03-05 12:25] LABS: CREATININE 0.9 mg/dL (0.55-1.3)
[2024-03-05 12:26] LABS: BILIRUBIN,TOTAL 0.4 mg/dL (0.2-1)
[2024-03-05 12:48] LABS: BASO % 0.8 % (0-2.0); EOS % 1.8 % (0-4.5); HEMATOCRIT 33.9 % (32.4-45.2); HEMOGLOBIN 11.4 GM/dL (10.7-15.3); LYMPH % 11.6 % (8-40); MCH 29.7 pg (25.7-33.7); MCHC 33.6 g/dl (32.0-36.0); MEAN CELL VOLUME 88.6 fl (80-96); MEAN PLT VOLUME 7.4 fl (7.5-11.1); MONO % 6.2 % (3.8-10.2); NEUT % 79.6 % (42.8-82.8); PLATELET COUNT 260 10^3/uL (134-434); RBC 3.83 M/mm3 (3.60-5.2)
[2024-03-05 12:52] LABS: INR 1.08 (0.83-1.09); PROTHROMBIN TIME (PATIENT) 12.4 SEC (9.7-13.0)
[2024-03-05 12:54] LABS: ACTIVATED PTT 26.4 SECONDS (25.2-36.5)
[2024-03-05 13:26] LABS: POTASSIUM 4.4 mmol/L (3.5-5.1)
[2024-03-05 13:28] LABS: CALCIUM 8.6 mg/dL (8.5-10.1)
[2024-03-05 13:29] LABS: ALBUMIN 3.1 g/dl (3.4-5.0); BLOOD UREA NITROGEN 18.4 mg/dL (7-18)
[2024-03-05 13:32] LABS: CREATININE 0.8 mg/dL (0.55-1.3)
[2024-03-05 13:34] LABS: BILIRUBIN,TOTAL 0.2 mg/dL (0.2-1); TOT PROT 6.6 g/dl (6.4-8.2)
[2024-03-05] MEDS ORDERED: morphine SULFATE 4 MG/ML VIAL ONE (14:07)
[2024-03-05] MEDS: morphine CARPU-JECT 4 MG/1 ML DISP.SYRIN IVPUSH ONE (14:15)
[2024-03-05] MEDS ORDERED: ACETAMINOPHEN 325 MG TABLET (FP) PO PRN (17:58)
[2024-03-05] MEDS ORDERED: ALBUTEROL SO4 0.083% IH SOL 2.5 MG/3 ML VIAL.NEB. NEB PRN (17:58)
[2024-03-05] MEDS: ENALAPRIL MALEATE 5 MG TABLET PO SCH (22:30)
[2024-03-05] MEDS: ATORVASTATIN CA 20 MG TABLET (FP) PO SCH (22:30)
[2024-03-05] MEDS: BUDESONIDE/FORMETEROL FUMARATE 160/4.5 mcg INHALER IH SCH (22:48)
[2024-03-06] MEDS: INSULIN ASPART SLIDING SCALE (NOVOLOG) 1 VIAL SQ SCH ×2 (07:00→13:14)
[2024-03-06 07:16] LABS: BASO % 0.6 % (0-2.0); HEMATOCRIT 33.6 % (32.4-45.2); LYMPH % 14.6 % (8-40); MCHC 32.8 g/dl (32.0-36.0); MEAN CELL VOLUME 88.5 fl (80-96); MEAN PLT VOLUME 7.1 fl (7.5-11.1); MONO % 7.7 % (3.8-10.2); NEUT % 76.1 % (42.8-82.8); PLATELET COUNT 244 10^3/uL (134-434); RDW 14.9 % (11.6-15.6); WHITE BLOOD COUNT 9.3 K/mm3 (4.0-10.0)
[2024-03-06 07:37] LABS: POTASSIUM 4.5 mmol/L (3.5-5.1)
[2024-03-06 07:41] LABS: CALCIUM 8.6 mg/dL (8.5-10.1)
[2024-03-06 07:42] LABS: ALBUMIN 3.1 g/dl (3.4-5.0); BLOOD UREA NITROGEN 17.4 mg/dL (7-18)
[2024-03-06 07:45] LABS: CREATININE 0.7 mg/dL (0.55-1.3)
[2024-03-06 07:46] LABS: TOT PROT 6.5 g/dl (6.4-8.2)
[2024-03-06 07:47] LABS: BILIRUBIN,TOTAL 0.7 mg/dL (0.2-1)
[2024-03-06] MEDS ORDERED: oxyCODONE HCL 5 MG TABLET PO PRN (07:48)
[2024-03-06] MEDS ORDERED: ONDANSETRON 4 MG/2 ML VIAL IVPUSH PRN ×2 (07:48→09:58)
[2024-03-06] MEDS ORDERED: LACTATED RINGERS SOLUTION 1,000 ML IV SCH (08:00)
[2024-03-06] MEDS ORDERED: BUPIVACAINE HCL/PF 0.5% (5MG/ML) 10 ML VIAL ONE (08:04)
[2024-03-06] MEDS ORDERED: SUCCINYLCHOLINE CHLORIDE 200 MG/10 ML SYRINGE ONE (08:06)
[2024-03-06] MEDS ORDERED: PROPOFOL 20 ML ONE (08:06)
[2024-03-06] MEDS ORDERED: ALBUTEROL SO4 HFA INHALER IH ONE (08:06)
[2024-03-06] MEDS: CLINDAMYCIN 600 MG PREMIX BAG IVPB ONE ×2 (08:35)
[2024-03-06] MEDS: ATENOLOL 25 MG TABLET (FP) PO SCH ×2 (09:56→11:47)
[2024-03-06] MEDS ORDERED: ALBUTEROL SO4 0.083% IH SOL 2.5 MG/3 ML VIAL.NEB. NEB PRN (09:58)
[2024-03-06] MEDS: LACTATED RINGERS SOLUTION 1,000 ML IV SCH (10:00)
[2024-03-06] MEDS: BUDESONIDE/FORMETEROL FUMARATE 160/4.5 mcg INHALER IH SCH (11:46)
[2024-03-06] MEDS: ENALAPRIL MALEATE 5 MG TABLET PO SCH (11:48)
[2024-03-06] MEDS: oxyCODONE HCL 5 MG TABLET PO PRN (17:40)
[2024-03-06] MEDS: CLINDAMYCIN 900 MG PREMIX IVPB 900 MG/50 ML BAG IVPB SCH (18:07)
[2024-03-06] MEDS: ATORVASTATIN CA 20 MG TABLET (FP) PO SCH (21:53)
[2024-03-07 08:34] LABS: BASO % 0.4 % (0-2.0); EOS % 0.7 % (0-4.5); HEMATOCRIT 27.8 % (32.4-45.2); HEMOGLOBIN 9.6 GM/dL (10.7-15.3); LYMPH % 17.8 % (8-40); MCH 30.2 pg (25.7-33.7); MCHC 34.5 g/dl (32.0-36.0); MEAN CELL VOLUME 87.5 fl (80-96); MEAN PLT VOLUME 7.5 fl (7.5-11.1); MONO % 9.5 % (3.8-10.2); NEUT % 71.6 % (42.8-82.8); PLATELET COUNT 205 10^3/uL (134-434); RBC 3.18 M/mm3 (3.60-5.2); RDW 14.7 % (11.6-15.6); WHITE BLOOD COUNT 9.4 K/mm3 (4.0-10.0)
[2024-03-07] MEDS: ENOXAPARIN NA (PORCINE) 40 MG/0.4 ML DISP.SYRIN SQ SCH (09:59)
[2024-03-07] MEDS: ACETAMINOPHEN 325 MG TABLET (FP) PO PRN (14:05)
[2024-03-08] MEDS ORDERED: INSULIN ASPART SLIDING SCALE (NOVOLOG) 1 VIAL SQ ONE (06:47)
[2024-03-08] MEDS: ENALAPRIL MALEATE 5 MG TABLET PO SCH (07:35)
[2024-03-08] MEDS: MULTIVITAMINS (DAILY MVI) TABLET (FP) PO SCH (09:44)
[2024-03-08 10:55] LABS: BASO % 0.7 % (0-2.0); EOS % 2.2 % (0-4.5); HEMATOCRIT 26.3 % (32.4-45.2); MCHC 34.2 g/dl (32.0-36.0); MEAN CELL VOLUME 87.7 fl (80-96); MEAN PLT VOLUME 7.5 fl (7.5-11.1); MONO % 10.7 % (3.8-10.2); NEUT % 70.4 % (42.8-82.8); PLATELET COUNT 207 10^3/uL (134-434); RDW 14.9 % (11.6-15.6); WHITE BLOOD COUNT 8.9 K/mm3 (4.0-10.0)
[2024-03-08 11:13] LABS: POTASSIUM 3.9 mmol/L (3.5-5.1)
[2024-03-08 11:15] LABS: CALCIUM 8.1 mg/dL (8.5-10.1)
[2024-03-08 11:16] LABS: ALBUMIN 2.6 g/dl (3.4-5.0); BLOOD UREA NITROGEN 22.7 mg/dL (7-18)
[2024-03-08 11:19] LABS: CREATININE 0.8 mg/dL (0.55-1.3)
[2024-03-08 11:20] LABS: BILIRUBIN,TOTAL 0.4 mg/dL (0.2-1); TOT PROT 5.4 g/dl (6.4-8.2)
[2024-03-08] MEDS: ATENOLOL 25 MG TABLET (FP) PO ONE (12:57)
[2024-03-08] MEDS: SODIUM CHLORIDE 500 ML IV STA (21:04)
[2024-03-09] MEDS: ATENOLOL 50 MG TABLET (FP) PO SCH (09:21)
[2024-03-10] MEDS: SODIUM CHLORIDE 1,000 ML IV SCH (13:50)
[2024-03-10] MEDS: AMINO ACIDS/PROTEIN HYDROLYS 30 ML LIQUID.PKT PO SCH (16:36)
[2024-03-11 06:51] LABS: BASO % 0.6 % (0-2.0); EOS % 4.4 % (0-4.5); HEMATOCRIT 24.9 % (32.4-45.2); HEMOGLOBIN 8.6 GM/dL (10.7-15.3); LYMPH % 22.7 % (8-40); MCH 30.6 pg (25.7-33.7); MCHC 34.6 g/dl (32.0-36.0); MEAN CELL VOLUME 88.4 fl (80-96); MEAN PLT VOLUME 7.4 fl (7.5-11.1); MONO % 9.3 % (3.8-10.2); PLATELET COUNT 281 10^3/uL (134-434); RBC 2.82 M/mm3 (3.60-5.2); RDW 14.3 % (11.6-15.6); WHITE BLOOD COUNT 7.7 K/mm3 (4.0-10.0)
[2024-03-11 08:30] LABS: CALCIUM 8.1 mg/dL (8.5-10.1)
[2024-03-11 08:31] LABS: ALBUMIN 2.4 g/dl (3.4-5.0); BLOOD UREA NITROGEN 20.7 mg/dL (7-18)
[2024-03-11 08:34] LABS: CREATININE 0.6 mg/dL (0.55-1.3)
[2024-03-11 08:36] LABS: BILIRUBIN,TOTAL 0.5 mg/dL (0.2-1); TOT PROT 5.4 g/dl (6.4-8.2)
[2024-03-12 06:38] LABS: BASO % 0.8 % (0-2.0); HEMATOCRIT 25.3 % (32.4-45.2); HEMOGLOBIN 8.5 GM/dL (10.7-15.3); LYMPH % 17.7 % (8-40); MCH 29.8 pg (25.7-33.7); MCHC 33.6 g/dl (32.0-36.0); MEAN CELL VOLUME 88.7 fl (80-96); MONO % 9.9 % (3.8-10.2); NEUT % 67.6 % (42.8-82.8); PLATELET COUNT 300 10^3/uL (134-434); RBC 2.85 M/mm3 (3.60-5.2); RDW 14.4 % (11.6-15.6); WHITE BLOOD COUNT 7.2 K/mm3 (4.0-10.0)
[2024-03-13] MEDS: traMADol HCL 50 MG TABLET PO ONE (17:50)
[2024-03-16] MEDS ORDERED: FUROSEMIDE 40 MG/4 ML INJECTABLE VIAL ONE (17:20)
[2024-03-16] MEDS: FUROSEMIDE 40 MG/4 ML INJECTABLE VIAL IVPUSH ONE ×2 (17:52→17:53)
[2024-03-17 01:53] LABS: ARTERIAL BLD GAS O2 SATURATION 97.8 % (95-98); ARTERIAL BLOOD GAS BASE EXCESS -1.5 mmol/L (-2-2); ARTERIAL BLOOD GAS PO2 96.1 mmHg (80-100); ARTERIAL BLOOD GAS pH 7.467 (7.350-7.450)
[2024-03-17 01:55] LABS: ALLENS TEST POSITIVE
[2024-03-17 03:15] LABS: EPI CELLS 11 /uL (0-25.1); HYALINE CASTS 1 /uL (0-3.1); URINE APPEARANCE CLOUDY; URINE BACTERIA 5893 /uL (0-1359); URINE BILIRUBIN NEGATIVE (NEGATIVE); URINE COLOR YELLOW; URINE GLUCOSE (UA) NEGATIVE (NEGATIVE); URINE KETONE NEGATIVE (NEGATIVE); URINE LEUK ESTERASE 2+ (NEGATIVE); URINE NITRITE NEGATIVE (NEGATIVE); URINE PROTEIN NEGATIVE (NEGATIVE); URINE RBC 10 /uL (0-23.9); URINE WBC 70 /uL (0-25.8)
[2024-03-17] MEDS ORDERED: VANCOMYCIN 750 MG in DEXTROSE 5%-WATER - 150 ML IVPB SCH ×2 (03:45→05:00)
[2024-03-17 03:50] LABS: HEMOGLOBIN 8.7 GM/dL (10.7-15.3); MCH 29.3 pg (25.7-33.7); MCHC 33.5 g/dl (32.0-36.0); MEAN CELL VOLUME 87.4 fl (80-96); MEAN PLT VOLUME 7.1 fl (7.5-11.1); PLATELET COUNT 296 10^3/uL (134-434); RBC 2.98 M/mm3 (3.60-5.2); RDW 14.9 % (11.6-15.6); WHITE BLOOD COUNT 20.8 K/mm3 (4.0-10.0)
[2024-03-17 04:10] LABS: POTASSIUM 3.1 mmol/L (3.5-5.1)
[2024-03-17 04:12] LABS: BLOOD UREA NITROGEN 27.1 mg/dL (7-18); CALCIUM 8.3 mg/dL (8.5-10.1)
[2024-03-17 04:15] LABS: CREATININE 1.2 mg/dL (0.55-1.3)
[2024-03-17 05:14] LABS: URINE CRYSTALS REVIEW /hpf
[2024-03-17] MEDS: VANCOMYCIN/WATER FOR INJ (PEG) 750 MG/150 ML BAG IVPB SCH (05:49)
[2024-03-17 06:13] LABS: ANISOCYTOSIS 3+; MACROCYTOSIS 0; ROULEAU 2+
[2024-03-17] MEDS: ENOXAPARIN NA (PORCINE) 40 MG/0.4 ML DISP.SYRIN SQ SCH (10:36)
[2024-03-17] MEDS: KCL 10 MEQ IVPB 10 MEQ/100 ML INFUS.BAG IVPB SCH (12:47)
[2024-03-17] MEDS: MEROPENEM 1 GM in DEXTROSE 5%-WATER 100 ML IVPB SCH (19:44)
[2024-03-18] MEDS: SODIUM CHLORIDE 500 ML IV STA (02:11)
[2024-03-18 08:25] LABS: HEMATOCRIT 25.6 % (32.4-45.2); HEMOGLOBIN 8.5 GM/dL (10.7-15.3); MCH 29.1 pg (25.7-33.7); MCHC 33.1 g/dl (32.0-36.0); MEAN CELL VOLUME 88.1 fl (80-96); MEAN PLT VOLUME 7.8 fl (7.5-11.1); PLATELET COUNT 266 10^3/uL (134-434); RBC 2.91 M/mm3 (3.60-5.2); WHITE BLOOD COUNT 15.7 K/mm3 (4.0-10.0)
[2024-03-18 08:38] LABS: POTASSIUM 3.4 mmol/L (3.5-5.1)
[2024-03-18 08:46] LABS: ALBUMIN 2.2 g/dl (3.4-5.0); CALCIUM 8.1 mg/dL (8.5-10.1)
[2024-03-18 08:49] LABS: CREATININE 1.4 mg/dL (0.55-1.3)
[2024-03-18 08:51] LABS: TOT PROT 5.5 g/dl (6.4-8.2)
[2024-03-18 09:00] LABS: BILIRUBIN,TOTAL 3.1 mg/dL (0.2-1)
[2024-03-18 09:51] LABS: ANISOCYTOSIS 0; MACROCYTOSIS 0
[2024-03-18] MEDS: POTASSIUM CHLORIDE ORAL LIQUID 20 MEQ/15 ML PO ONE (12:38)
[2024-03-19 10:13] LABS: BASO % 0.3 % (0-2.0); EOS % 2.4 % (0-4.5); HEMATOCRIT 24.8 % (32.4-45.2); HEMOGLOBIN 8.2 GM/dL (10.7-15.3); LYMPH % 8.3 % (8-40); MCH 28.8 pg (25.7-33.7); MEAN CELL VOLUME 87.3 fl (80-96); MEAN PLT VOLUME 7.5 fl (7.5-11.1); MONO % 5.5 % (3.8-10.2); NEUT % 83.5 % (42.8-82.8); PLATELET COUNT 275 10^3/uL (134-434); RBC 2.84 M/mm3 (3.60-5.2); RDW 14.9 % (11.6-15.6); WHITE BLOOD COUNT 8.4 K/mm3 (4.0-10.0)
[2024-03-19 10:31] LABS: POTASSIUM 3.3 mmol/L (3.5-5.1)
[2024-03-19 10:33] LABS: CALCIUM 8.3 mg/dL (8.5-10.1)
[2024-03-19 10:34] LABS: ALBUMIN 2.2 g/dl (3.4-5.0); BLOOD UREA NITROGEN 31.9 mg/dL (7-18)
[2024-03-19 10:39] LABS: BILIRUBIN,TOTAL 1.5 mg/dL (0.2-1); TOT PROT 5.7 g/dl (6.4-8.2)
[2024-03-19] MEDS: CEFAZOLIN 1 GM in DEXTROSE 5%-WATER - 50 ML IVPB SCH (17:42)
[2024-03-20 07:47] LABS: BASO % 0.7 % (0-2.0); EOS % 3.9 % (0-4.5); LYMPH % 13.5 % (8-40); MCH 29.6 pg (25.7-33.7); MCHC 33.5 g/dl (32.0-36.0); MEAN CELL VOLUME 88.3 fl (80-96); MEAN PLT VOLUME 8.2 fl (7.5-11.1); MONO % 7.9 % (3.8-10.2); PLATELET COUNT 295 10^3/uL (134-434); RBC 2.72 M/mm3 (3.60-5.2); RDW 14.7 % (11.6-15.6); WHITE BLOOD COUNT 7.3 K/mm3 (4.0-10.0)
[2024-03-20 07:57] LABS: POTASSIUM 3.4 mmol/L (3.5-5.1)
[2024-03-20 08:00] LABS: CALCIUM 8.2 mg/dL (8.5-10.1)
[2024-03-20 08:01] LABS: ALBUMIN 2.2 g/dl (3.4-5.0); BLOOD UREA NITROGEN 24.6 mg/dL (7-18)
[2024-03-20 08:03] LABS: CREATININE 0.8 mg/dL (0.55-1.3)
[2024-03-20 08:05] LABS: BILIRUBIN,TOTAL 0.9 mg/dL (0.2-1)
[2024-03-20 08:06] LABS: TOT PROT 5.4 g/dl (6.4-8.2)
[2024-03-20] MEDS: POTASSIUM CHLORIDE ORAL LIQUID 20 MEQ/15 ML PO ONE (18:01)
[2024-03-21 16:17] VITALS: BMI 23.7
[2024-03-21] MEDS: FERROUS SO4 325 MG TABLET (FP) PO SCH (18:19)
[2024-03-22 06:01] VITALS: RESP 18
[2024-03-22 06:36] LABS: HEMATOCRIT 25.8 % (32.4-45.2); HEMOGLOBIN 8.9 GM/dL (10.7-15.3); MCH 30.4 pg (25.7-33.7); MCHC 34.4 g/dl (32.0-36.0); MEAN CELL VOLUME 88.4 fl (80-96); PLATELET COUNT 334 10^3/uL (134-434); RBC 2.92 M/mm3 (3.60-5.2); RDW 14.7 % (11.6-15.6); WHITE BLOOD COUNT 7.9 K/mm3 (4.0-10.0)
[2024-03-22 06:55] LABS: POTASSIUM 3.2 mmol/L (3.5-5.1)
[2024-03-22 07:02] LABS: ALBUMIN 2.4 g/dl (3.4-5.0); BLOOD UREA NITROGEN 21.5 mg/dL (7-18); CALCIUM 8.7 mg/dL (8.5-10.1)
[2024-03-22 07:05] LABS: CREATININE 0.8 mg/dL (0.55-1.3)
[2024-03-22 07:06] LABS: BILIRUBIN,TOTAL 0.7 mg/dL (0.2-1); TOT PROT 5.8 g/dl (6.4-8.2)
[2024-03-22 10:00] LABS: ANISOCYTOSIS 0; MACROCYTOSIS 0; OVALOCYTE 1+
[2024-03-22 10:03] LABS: PLATELET ESTIMATE ADEQUATE
[2024-03-22] MEDS: POTASSIUM CHLORIDE ORAL LIQUID 20 MEQ/15 ML PO ONE (12:39)
[2024-03-22] MEDS: CEFUROXIME AXETIL 250 MG TABLET PO SCH (22:14)
[2024-03-23 14:44] VITALS: BP 150/60; PULSE 59; TEMP 98.8
== END 2024-03-23 15:55 | disposition home health service (06) | DRG 480 ==
LOC: JER 10:34 → JERBED 16:31 → J6S 19:19 → J4S 03-06 11:17
PROVIDERS: ADMIT Internal Medicine; ATTEND Internal Medicine
PROC: 0QH706Z Insertion of Intramedullary Internal Fixation Device into Left Upper Femur, Open Approach (ICD-10-PCS; principal; 2024-03-06 08:00)
DX: S72.142A Displaced intertrochanteric fracture of left femur, initial encounter for closed fracture (principal); A41.9 Sepsis, unspecified organism; J96.01 Acute respiratory failure with hypoxia; I50.31 Acute diastolic (congestive) heart failure; J18.9 Pneumonia, unspecified organism; I47.10 Supraventricular tachycardia, unspecified; N39.0 Urinary tract infection, site not specified; J44.9 Chronic obstructive pulmonary disease, unspecified; I11.0 Hypertensive heart disease with heart failure; I25.10 Atherosclerotic heart disease of native coronary artery without angina pectoris; E11.9 Type 2 diabetes mellitus without complications; W01.0XXA Fall on same level from slipping, tripping and stumbling without subsequent striking against object, initial encounter; Y93.89 Activity, other specified; Y92.89 Other specified places as the place of occurrence of the external cause; Y99.8 Other external cause status; I49.3 Ventricular premature depolarization
CPT/HCPCS: 36415; 36600; 71045-TC-FY; 72170-TC-FY; 72192-TC; 73502-TC-LT-FY; 76000-TC-FY; 76705-TC; 80048; 80053; 81003; 82550; 82553; 82803; 82962; 83036; 83605; 84443; 84484; 85025; 85610; 85730; 86850; 86900; 86901; 87040; 87086; 87186; 93005; 93010; 93306-TC; 94010; 94760; 97116-GP; 97162-GP; 99285-25; C1713; J0131

== ENCOUNTER 2024-03-25 10:29 | Observation (INO) | payer OTHER ==
[2024-03-25 11:37] LABS: BASO % 1.3 % (0-2.0); EOS % 3.1 % (0-4.5); HEMATOCRIT 28.9 % (32.4-45.2); HEMOGLOBIN 9.6 GM/dL (10.7-15.3); LYMPH % 23.9 % (8-40); MCH 29.7 pg (25.7-33.7); MCHC 33.4 g/dl (32.0-36.0); MEAN CELL VOLUME 88.9 fl (80-96); MEAN PLT VOLUME 7.4 fl (7.5-11.1); MONO % 9.1 % (3.8-10.2); NEUT % 62.6 % (42.8-82.8); PLATELET COUNT 428 10^3/uL (134-434); RBC 3.25 M/mm3 (3.60-5.2); RDW 15.4 % (11.6-15.6); WHITE BLOOD COUNT 9.8 K/mm3 (4.0-10.0)
[2024-03-25 11:56] LABS: POTASSIUM 3.8 mmol/L (3.5-5.1)
[2024-03-25 11:58] LABS: ALBUMIN 2.9 g/dl (3.4-5.0); CALCIUM 9.1 mg/dL (8.5-10.1)
[2024-03-25 12:02] LABS: CREATININE 0.8 mg/dL (0.55-1.3)
[2024-03-25 12:03] LABS: BILIRUBIN,TOTAL 0.9 mg/dL (0.2-1); TOT PROT 6.8 g/dl (6.4-8.2)
[2024-03-25] MEDS ORDERED: ALBUTEROL SO4 0.083% IH SOL 2.5 MG/3 ML VIAL.NEB. NEB PRN (15:21)
[2024-03-25] MEDS ORDERED: ACETAMINOPHEN 325 MG TABLET (FP) PO PRN (15:22)
[2024-03-25] MEDS: INSULIN ASPART SLIDING SCALE (NOVOLOG) 1 VIAL SQ SCH (17:05)
[2024-03-25] MEDS: HEPARIN NA (PORCINE) 5,000 UNITS/ML 1ML VIAL SQ SCH (21:58)
[2024-03-25] MEDS: ATORVASTATIN CA 20 MG TABLET (FP) PO SCH (21:58)
[2024-03-25] MEDS: BUDESONIDE/FORMETEROL FUMARATE 160/4.5 mcg INHALER IH SCH (22:51)
[2024-03-26] MEDS: ENALAPRIL MALEATE 5 MG TABLET PO SCH (09:28)
[2024-03-26] MEDS: ATENOLOL 25 MG TABLET (FP) PO SCH (11:07)
[2024-04-01 10:47] VITALS: BMI 22.4
[2024-04-02] MEDS: AMINO ACIDS/PROTEIN HYDROLYS 30 ML LIQUID.PKT PO SCH (08:33)
[2024-04-02] MEDS: MULTIVITAMINS (DAILY MVI) TABLET (FP) PO SCH (09:08)
[2024-04-05 02:58] VITALS: RESP 18
[2024-04-07 09:22] LABS: BASO % 1.1 % (0-2.0); EOS % 5.2 % (0-4.5); HEMATOCRIT 33.1 % (32.4-45.2); HEMOGLOBIN 11.3 GM/dL (10.7-15.3); LYMPH % 21.2 % (8-40); MCH 30.8 pg (25.7-33.7); MCHC 34.1 g/dl (32.0-36.0); MEAN CELL VOLUME 90.4 fl (80-96); MEAN PLT VOLUME 7.8 fl (7.5-11.1); MONO % 8.9 % (3.8-10.2); NEUT % 63.6 % (42.8-82.8); PLATELET COUNT 259 10^3/uL (134-434); RBC 3.66 M/mm3 (3.60-5.2); RDW 16.9 % (11.6-15.6); WHITE BLOOD COUNT 7.1 K/mm3 (4.0-10.0)
[2024-04-07 09:48] LABS: POTASSIUM 4.5 mmol/L (3.5-5.1)
[2024-04-07 09:59] LABS: CALCIUM 9.1 mg/dL (8.5-10.1)
[2024-04-07 10:00] LABS: ALBUMIN 3.2 g/dl (3.4-5.0); BLOOD UREA NITROGEN 20.2 mg/dL (7-18)
[2024-04-07 10:04] LABS: BILIRUBIN,TOTAL 1.2 mg/dL (0.2-1)
[2024-04-07 10:05] LABS: TOT PROT 7.3 g/dl (6.4-8.2)
[2024-04-08 08:34] VITALS: BP 109/64; PULSE 75; TEMP 98.2
== END 2024-04-08 11:19 | disposition home or self-care (01) ==
LOC: JER 10:29 → JERBED 12:38 → J6S 13:59
PROVIDERS: ADMIT Internal Medicine; ATTEND Internal Medicine
PROC: 3E023GC Introduction of Other Therapeutic Substance into Muscle, Percutaneous Approach (ICD-10-PCS; principal; 2024-03-25)
DX: Z75.1 Person awaiting admission to adequate facility elsewhere (principal); I25.10 Atherosclerotic heart disease of native coronary artery without angina pectoris; E11.9 Type 2 diabetes mellitus without complications; J44.9 Chronic obstructive pulmonary disease, unspecified; Z98.890 Other specified postprocedural states; I10 Essential (primary) hypertension; Z99.81 Dependence on supplemental oxygen; N39.43 Post-void dribbling; Z87.891 Personal history of nicotine dependence; Z88.0 Allergy status to penicillin; Z87.81 Personal history of (healed) traumatic fracture; Z91.012 Allergy to eggs
CPT/HCPCS: 36415; 80053; 82962; 85025; 87635; 93005; 93010; 96372; 97116-GP; 97161-GP; 99285-25; G0378; J1644